=== PATIENT | female | born 1960 | race Caucasian/White ===

== ENCOUNTER 2019-10-26 11:30 | Emergency (ER) | payer OTHER, BC, SELFPAY ==
--- NOTE | ~2019-10-26 | XR_ITS ---
EXAMINATION: XR chest 2V 10/26/2019 11:55 INDICATION: Status post fall. Chest pain. PROCEDURE: 2 view chest COMPARISON: 01/22/2019 FINDINGS: The lungs are clear. The cardiomediastinal silhouette is within normal limits. There are no pleural effusions. There is no pneumothorax suspected. IMPRESSION: 1: NO ACUTE CARDIOPULMONARY DISEASE. Reviewed, dictated and finalized at location A.
[2019-10-26 11:34] VITALS: BP 147/84; PULSE 87; RESP 20; TEMP 36.4; O2SAT 99
--- NOTE | 2019-10-26 11:48 | ED.FALL ---
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 Patient states, while at work a week and a half ago, she slipped and fell. During the episode she had a recurrent left elbow dislocation, for which she was seen and treated and placed on a short course of hydrocodone. She first returned to work today light duty, and complains of right anterior rib pain that began gradually a day after the original injury. No fever, cough, foreign or domestic travel [he has been to [facility]] , wheeze, shortness of breath., N/V/D Related Data Home Medications Medication Instructions Recorded Confirmed armodafinil [Nuvigil] 150 mg PO QAM 10/26/19 10/26/19 ibuprofen 200 mg PO Q6H PRN 10/26/19 10/26/19 Allergies Allergy/AdvReac Type Severity Reaction Status Date / Time No Known Allergies Allergy Verified 10/26/19 11:46 Review of Systems Review of Systems: Narrative: The patient has been informed that they may have pre-hypertension or Hypertension based on a BP reading in the department. I recommend that the patient call the primary care provider listed on their discharge instructions or a physician of their choice this week to arrange follow up for further evaluation of possible pre-hypertension or Hypertension General/Constitutional: No weight loss,fever Eyes: N0: Redness,discharge Ears/Nose/Throat: No: Epistaxis,ear discharge Respiratory: Denies: Hemoptysis Gastrointestinal: No Vomiting, Bleeding-rectal Skin: No Lumps, eruption Neurologic: No Focal Weakness,Sz Hematologic: Denies: Petechiae/Purpura Psychiatric: No: Suicida ideationl All Other Systems: Reviewed and Negative [facility] Past Medical History Medical History (Updated 10/26/19 @ 12:15 by Vinay Sanchez MD) Depression Dislocation of elbow, left, closed (05/23/19) History of benign breast biopsy Social History Social History (Updated 05/27/19 @ 13:43 by Milagros Welch) Smoking status: Never smoker Additional smoking assessment comments: No smoking Alcohol intake: current Comments At time of signature, agree with nursing past medical, surgical, social and family history. There is no relevant family history pertinent to the presenting complaint Exam Narrative: Exam Narrative: General Appearance: Well appearing, Well nourished, No distress EYE: PERRLA, EOMI, Conjunctiva clear Ears: External ear normal, Auditory canal normal Nose: Normal nose, Nares clear Mouth/Throat: Normal appearing, Normal lips Neck: Supple Respiratory: Airway patent, No respiratory distress, tende ant ribs T8-11 Musculoskeletal: Normal strength Skin: Warm, Dry, Normal color Neurological: A&O x3, Speech clear, CN II-XII intact Psychiatric: Normal mood, Normal affect The patient agrees, in light of health emergency- in my medical judgement, only a personal chat was preferable to fully undress & examine the patient exhibiting potential COVID symptoms, in order to limit risk of infection. Course Vital Signs Vital signs: Vital Signs Temperature 97.6 F 10/26/19 11:34 Pulse Rate 87 10/26/19 11:34 Respiratory Rate 10/26/19 11:34 Blood Pressure 147/84 H 10/26/19 11:34 Pulse Oximetry 99 10/26/19 11:34 Temperature 97.6 F 10/26/19 11:34 Pulse Rate 87 10/26/19 11:34 Respiratory Rate 10/26/19 11:34 Blood Pressure 147/84 H 10/26/19 11:34 Pulse Oximetry 99 10/26/19 11:34 Discharge Plan Discharge Clinical Impression: Rib injury Patient Disposition: Home, Self-Care Condition: Stable Instructions: Antibiotic Form Prescriptions: New tramadol 50 mg tablet 50 mg PO BID-TID PRN (Reason: pain) Qty: 15 RF: 0 acetaminophen-codeine [Tylenol-Codeine #3] 300-30 mg tablet 1 tablet PO Q4H PRN (Reason: pain) Qty: 14 RF: 0 No A
== END 2019-10-26 12:32 | disposition home or self-care (01) ==
PROVIDERS: Emergency Provider Emergency Medicine; PCP Family Medicine Adolescent Medicine
DX: S29.9XXA Unspecified injury of thorax, initial encounter (principal); W01.0XXA Fall on same level from slipping, tripping and stumbling without subsequent striking against object, initial encounter
CPT/HCPCS: 71046; 99213; G0463

== ENCOUNTER → 2019-10-27 13:04 | Outpatient (CLI) | payer BC, SELFPAY ==
--- NOTE | ~2019-10-27 | MM_ITS ---
EXAMINATION: MM screening [facility] BI w dulce HISTORY: Screening mammogram TECHNIQUE: Craniocaudal and mediolateral oblique 3-D tomosynthesis images were obtained and synthetic 2-D images were generated. CAD analysis was submitted and interpreted. COMPARISON: Comparison to multiple prior studies sequentially, with oldest reviewed study dated 12/2011. BREAST PARENCHYMAL COMPOSITION: There are scattered areas of fibroglandular density. FINDINGS: There is no evidence of suspicious mass, calcification, or architectural distortion to sugg est malignancy in either breast. There has been no suspicious interval change. IMPRESSION: 1. No mammographic evidence of malignancy. 2. Recommend routine screening mammography in one year. BI-RADS Category 1: Negative Reviewed, dictated and finalized at location A.
== END ==
PROVIDERS: Visit Provider Nurse Practitioner Obstetrics & Gynecology
DX: Z12.31 Encounter for screening mammogram for malignant neoplasm of breast (principal)
CPT/HCPCS: 77063; 77067

== ENCOUNTER 2020-08-29 14:48 | Emergency (ER) | payer BC, SELFPAY ==
--- NOTE | ~2020-08-29 | XR_ITS ---
EXAMINATION: XR chest 2V DATE: 08/29/2020 15:20 INDICATION: Midsternal chest pain radiating to the left arm TECHNIQUE: PA and lateral views of the chest were obtained. COMPARISON: Chest radiograph dated 10/26/19 FINDINGS: The lungs remain clear with no focal airspace opacities, pulmonary edema, pleural effusion or pneumot horax. The cardiomediastinal silhouette is normal. Mild thoracic kyphosis with moderate thoracic and lower cervical spondylosis. IMPRESSION: 1. No acute cardiopulmonary disease. Reviewed, dictated and finalized at location A. 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
--- NOTE | 2020-08-29 14:51 | ECG_ITS ---
Measurements Intervals Sunset Rate: 69 P: 25 MS: 149 QRS: 13 QRSD: 91 T: 39 QT: 404 QTc: 436 Interpretive Statements SINUS RHYTHM BASELINE ARTIFACT- I, II, III, AVR, AVL, AVF, V1 NORMAL ECG Electronically Signed On 08-29-2020 18:58:30 ENGINE REPAIRER by Mikal Hill D.O.
[2020-08-29 14:56] VITALS: BP 137/77; PULSE 75; RESP 15; TEMP 36.4; O2SAT 96
[2020-08-29 15:00] VITALS: PULSE 79
[2020-08-29 15:13] LABS: Basophils Percent Auto 0.5 % (0.2-1.2); Eosinophils Absolute Auto 0.1 K/mm3 (0-0.3); Eosinophils Percent Auto 1.8 % (0-4.4); Hematocrit 44.3 % (37.0-47.0); Hemoglobin 14.7 g/dL (12.0-15.0); Immature Granulocyte Absolute 0.01 K/mm3 (0.00-0.031); Immature Granulocyte Percent A 0.2 % (0-0.5); Lymphocytes Absolute Auto 1.79 K/mm3 (0.9-3.2); Mean Corpuscular HGB Conc 33.2 g/dl (32-36); Mean Corpuscular Hemoglobin 32.8 pg (26-34); Mean Corpuscular Volume 98.9 fl (80-100); Mean Platelet Volume 9.8 fl (7.4-10.4); Monocytes Absolute Auto 0.2 K/mm3 (0.1-0.6); Monocytes Percent Auto 3.9 % (2.6-8.5); Neutrophils Percent Auto 64.6 % (45.5-73.1); Platelet Count Result 340 k/mm3 (150-375); Red Blood Count 4.48 M/mm3 (4.2-5.4); Red Cell Distribution Width 12.1 % (11.5-14.5); White Blood Count 6.2 K/mm3 (4.5-10.0)
[2020-08-29] MEDS: ASPIRIN 81 MG CHEWABLE TABLET 324 MG PO (15:13)
[2020-08-29 15:23] LABS: INR 0.9; Prothrombin Time 12.7 Seconds (11.1-14.7)
[2020-08-29 15:24] LABS: Partial Thromboplastin Time 29.4 SECONDS (22.3-36.8)
[2020-08-29 15:25] LABS: Anion Gap 3 mmol/L (8-16); Blood Urea Nitrogen 16 mg/dL (7-17); Calcium 9.1 mg/dL (8.4-10.2); Carbon Dioxide 34 mmol/L (22-30); Chloride 104 mmol/L (98-107); Estimated CRCL calculation 43 ml/min; Estimated Glomerular Filt Rate 46; Glucose 97 mg/dL (65-105); Potassium 4.1 mmol/L (3.4-5.0); Sodium 141 mmol/L (137-145)
[2020-08-29 15:37] LABS: Troponin I < 0.012 ng/mL (0.000-0.034)
--- NOTE | 2020-08-29 15:39 | ED.CHESTPAIN ---
HPI - Chest Pain General Chief Complaint: Chest Pain <Jose G Asencio MD - Last Filed: 08/29/20 16:44> Stated Complaint: chest pain <Jose G Asencio MD - Last Filed: 08/29/20 16:44> Time Seen by Provider: 08/29/20 15:01 <Jose G Asencio MD - Last Filed: 08/29/20 16:44> History of Present Illness HPI narrative: Patient is a 59-year-old female who presents to the ER with left-sided chest pain. 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 Pain lasts about 5 minutes and caused her to be lightheaded. She reports her labor is intensive. She had similar chest discomfort 2 days earlier that lasted about 5 minutes while she is having sexual intercourse with her . At that time she also stopped what she was doing and her symptoms resolved. At that time she also had lightheadedness. Patient has no known heart disease. She is a non-smoker. She called her PCP today who recommended she come to the ER for further evaluation. Chest pain is aching and nonradiating. <Jose G Asencio MD - Last Filed: 08/29/20 16:44> Related Data Home Medications: Home Medications Medication Instructions Recorded Confirmed armodafinil [Nuvigil] 150 mg PO QAM 10/26/19 10/26/19 <Jose G Asencio MD - Last Filed: 08/29/20 16:44> Allergies/Adverse Reactions: Allergies Allergy/AdvReac Type Severity Reaction Status Date / Time No Known Allergies Allergy Verified 08/29/20 14:59 <Jose G Asencio MD - Last Filed: 08/29/20 16:44> Review of Systems Review of Systems: All systems reviewed & are unremarkable except as noted in HPI and below <Jose G Asencio MD - Last Filed: 08/29/20 16:44> Constitutional: Constitutional: Denies chills, Denies fever(s) and Denies weakness <Jose G Asencio MD - Last Filed: 08/29/20 16:44> ENT: Denies nasal congestion and Denies sore throat <Jose G Asencio MD - Last Filed: 08/29/20 16:44> Cardiovascular: Cardiovascular: Reports chest pain, Denies rapid heart rate and Denies radiating jaw, neck or arm pain <Jose G Asencio MD - Last Filed: 08/29/20 16:44> Respiratory: Respiratory: Denies cough, Denies dyspnea and Denies wheezing <Jose G Asencio MD - Last Filed: 08/29/20 16:44> Neurologic: Reports dizziness and Denies weakness <Jose G Asencio MD - Last Filed: 08/29/20 16:44> PMFSH Past Medical History Medical History: Medical History (Updated 08/29/20 @ 16:44 by Jose G Asencio MD) Depression Dislocation of elbow, left, closed (05/23/19) History of benign breast biopsy <Jose G Asencio MD - Last Filed: 08/29/20 16:44> Surgical History Surgical History: Surgical History (Updated 08/29/20 @ 16:39 by Jose G Asencio MD) No pertinent past surgical history <Jose G Asencio MD - Last Filed: 08/29/20 16:44> Social History Social History: Social History (Updated 05/27/19 @ 13:43 by Milagros Welch) Smoking status: Never smoker Additional smoking assessment comments: No smoking Alcohol intake: current Gender identity (if verbalized by the patient): Female <Jose G Asencio MD - Last Filed: 08/29/20 16:44> Exam Narrative: Exam Narrative: GENERAL: Well-appearing, well-nourished, and in no acute distress. HEAD: Normocephalic, atraumatic. CHEST: Clear to auscultation. No respiratory distress. HEART: Regular rate and rhythm. Normal peripheral pulses. ABDOMEN: Soft, nontender, nondistended. EXTREMITIES: Normal range of motion. No edema. SKIN: Warm, dry, no rash. NEURO: Alert and oriented x3. PSYCH: Normal mood and affect. <Jose G Asencio MD - Last Filed: 08/29/20 16:44> Course Reevaluation(s) Reevaluation #1: Patient chest pain-free at this time. Discussed with Dr. Chadwick with cardiology. Recommends second trop. If negative d/c and they will contact for outpt stress test. <Jose G Asencio MD - Last Filed: 08/29/20 16:44> Date: 08/29/20 <An
[2020-08-29 16:06] VITALS: BP 147/85; PULSE 69; RESP 12; O2SAT 100
[2020-08-29 17:43] VITALS: BP 109/66; PULSE 71; RESP 12; O2SAT 100
[2020-08-29 18:37] LABS: Troponin I < 0.012 ng/mL (0.000-0.034)
[2020-08-29 18:44] VITALS: BP 119/73; PULSE 69; RESP 12; O2SAT 98
[2020-08-29 19:06] VITALS: BP 113/78; PULSE 68; RESP 18; O2SAT 98
== END 2020-08-29 19:07 | disposition home or self-care (01) ==
PROVIDERS: Emergency Medicine; Emergency Provider Emergency Medicine; PCP Family Medicine Adolescent Medicine
DX: R07.9 Chest pain, unspecified (principal)
CPT/HCPCS: 36415; 71046; 80048; 84484; 85025; 85610; 85730; 93005; 99284; A9270

== ENCOUNTER → 2021-12-22 14:23 | Outpatient (CLI) | payer BC, SELFPAY ==
--- NOTE | ~2021-12-22 | MM_ITS ---
EXAMINATION: MM screening [facility] BI w dulce HISTORY: Screening mammogram TECHNIQUE: Craniocaudal and mediolateral oblique 3-D tomosynthesis images were obtained and synthetic 2-D images were generated. CAD analysis was submitted and interpreted. COMPARISON: 10/27/2019, 07/01/2018, 09/17/2016 BREAST PARENCHYMAL COMPOSITION: There are scattered areas of fibroglandular density. FINDINGS: There is no suspicious mass, calcification, or architectural distortion to suggest malignan cy in either breast. There has been no suspicious interval change. IMPRESSION: 1. No mammographic evidence of malignancy. 2. Recommend routine screening mammography in one year. BI-RADS Category 1: Negative Reviewed, dictated and finalized at location A.
--- NOTE | ~2021-12-22 | DEXA_ITS ---
Bone Density Report Name: JULY WEBSTER Age: 61 Sex: Female Ethnicity: White Date of : 1960 Indication: osteopenia; parental hip fracture; height loss; postmenopausal Referring Provider: Mae, Araceli Miranda Study: Bone densitometry was performed. Exam Date: December 22, 2021 Accession number: [id number] Bone Density: Region BMD T-score Z-score Classification AP Spine (L1-L4) 0.781 -2.4 -0.9 Osteopenia Femoral Neck (Left) 0.642 -1.9 -0.5 Osteopenia Total Hip (Left) 0.761 -1.5 -0.5 Osteopenia Femoral Neck (Right) 0.642 -1.9 -0.5 Osteopenia Total Hip (Right) 0.732 -1.7 -0.7 Osteopenia Total Hip Mean 0.747 -1.6 -0.6 Osteopenia World Health Organization criteria for BMD impression classify patients as: Normal (T-score at or above -1.0), Osteopenia (T-score between -1.0 and -2.5), or Osteoporosis (T-score at or below -2.5). 10-year Fracture Risk(1): Major Osteoporotic Fracture 20% Hip Fracture 1.6% Reported Risk Factors: [place] (), Neck BMD=0.642, BMI=30.7, parental fracture, alcohol use (1) FRAX(R) Version 3.08. Fracture probability calculated for an untreated patient. Fracture probability may be lower if the patient has received treatment. Previous Exams: Region Exam Age BMD T-score BMD Change BMD Change Date g/cm2 vs Baseline vs Previous AP Spine(L1-L4) 12/22/2021 61 0.781 -2.4 -0.070* -0.070* 07/20/2011 50 0.851 -1.8 Total Hip(Left) 12/22/2021 61 0.761 -1.5 -0.059* -0.059* 07/20/2011 50 0.820 -1.0 Total Hip(Right) 12/22/2021 61 0.732 -1.7 -0.087* -0.087* 07/20/2011 50 0.820 -1.0 *Denotes significance at 95% confidence level, LSC for AP Spine = 0.022 g/cm2, LSC for Total Hip = 0.027 g/cm2 Clinical Information Provided by Patient: Parent has had a hip fracture Has 3 or more alcoholic drinks per day Has used the following medications: Calcium Patient maximum height was 63 Menopause Age: 47 No regular weight bearing exercise Onset of menses at age 14 Number of children 2 Impression: The patient has low bone mass, based on the Total Spine T-score. The patient has an estimated ten-year risk of hip fracture of 1.6% and an estimated ten-year risk of major fracture of 20%, based on the WHO FRAX algorithm. The patient has risk factors, including: parental hip fracture, excessive alcohol use. The BMD for the AP Spine(L1-L4) decreased, changing by -0.070 since the
== END ==
PROVIDERS: PCP Family Medicine Adolescent Medicine; Visit Provider Nurse Practitioner Obstetrics & Gynecology
DX: Z12.31 Encounter for screening mammogram for malignant neoplasm of breast (principal); Z78.0 Asymptomatic menopausal state; M85.89 Other specified disorders of bone density and structure, multiple sites
CPT/HCPCS: 77063; 77067; 77080

== ENCOUNTER 2022-02-09 14:25 | Outpatient (CLI) | payer BC, SELFPAY ==
--- NOTE | ~2022-02-09 | MR_ITS ---
EXAMINATION: MR brain/brain stem wo con DATE: 02/09/2022 15:03 INDICATION: Sudden agraphia. TECHNIQUE: Magnetic resonance imaging (MRI) of the brain and brainstem was performed without intraven ous contrast. Sequences included sagittal and axial T1-weighted SE, axial diffusion-weighted FS SE, a xial T2*-weighted GRE, axial T2-weighted FLAIR Propeller, and axial T2-weighted Propeller. Apparent d iffusion coefficient (ADC) maps were created. COMPARISON: No prior studies for comparison. . FINDINGS: Normal brain parenchymal volume for age. No evidence for acute infarction or hemorrhage. Fl ow voids in the major intracerebral arteries are normal. Orbits are symmetric without disconjugate ga ze. There are scattered mild periventricular and subcortical white matter changes, most likely relate d to small vessel ischemic disease (microangiopathy). No ventriculomegaly or midline shift. Structure s of the posterior fossa including the seventh/8th cranial nerve complexes are normal. Paranasal sinu ses are unremarkable. Midline sagittal images demonstrate a normal corpus callosum and craniovertebra l junction. IMPRESSION: 1. No acute intracranial abnormality. 2: Mild chronic age-related findings. Reviewed, dictated and finalized at location A.
== END 2022-02-09 14:26 | disposition home or self-care (01) ==
PROVIDERS: PCP Family Medicine Adolescent Medicine; Visit Provider Physician Assistant
DX: R48.8 Other symbolic dysfunctions (principal)
CPT/HCPCS: 70551

== ENCOUNTER 2022-07-13 01:34 | Day surgery (SDC) | payer BC, SELFPAY ==
[2022-07-05 14:15] VITALS: BMI 30.2
--- NOTE | 2022-07-05 14:19 | PC.NURSE ---
Report to the Outpatient Waiting Room, entrance under the green pavilion located off [facility], at time 0830 on date 07/13/22. Planned Procedure Time: 1030. Time changes happen often and if your time is changed the preop area will call you the afternoon before. - You and your visitor will be asked to self-screen and do not enter if you have any COVID symptoms. - Only one visitor is requested with a max of two and NO children visitors are allowed at this time. - The patient visitor may be requested to leave or wait in car when not with patient due to distancing restrictions. - A mask is REQUIRED within the hospital. Patients may have clear liquids (water, carbonated beverages, clear teas, apple juice) until 3 hours prior to surgery with a maximum of 20 ounces. - No food from midnight until time of surgery Take the following medications with a SIP of water the morning of surgery: NONE Medications to discontinue per physician: VITAMINS Date to take last dose: 07/09/[address] ASPIRIN [address] DIAZ Please no make-up, nail honduran, hairspray, perfume, deodorant, or body powder the day of surgery. No jewelry (including any body piercings) or valuables the day of surgery, leave them at home. Please take a shower or bath the night before, or the morning of, surgery with an antibacterial soap. Wear comfortable, loose fitting clothing. - Jewelry must be removed prior to entering the operating room. Rings and piercings that are not removed may be cut off. - The hospital will not accept responsibility for valuables. - Please leave all valuables, including medications, at home the day of surgery. If you are going home after surgery, a licensed car pick up driver must drive you home. - NO public transportation without another adult if you receive anesthesia. - We recommend that an adult stay with you for 24 hours following discharge. - We also recommend that you do not drive, make important decision, drink alcoholic beverages, or take any drugs that were not prescribed by your health care provider for at least 24 hours after your discharge time. Follow any additional instructions given to you from your surgeon. If you or anyone in your household have experienced Covid symptoms in the past week, please notify your surgeon or the nurse liaison at the phone number below for possible testing. Telephone instructions given to PT - JULY WEBSTER and asked if any additional questions and then verbalized understanding. Patient advised to call surgeon office or pre surgery nurse liaison [phone] if any additional questions.
--- NOTE | 2022-07-12 08:56 | WPDANESEPPF ---
Anes - Initial Pre Proc Eval Procedure: Operation Date: 07/13/22 10:30 Proposed Procedures p Partial Plantar Fasciectomy Left Foot - Hamilton Patterson JR, MD Date/Time: 07/12/22 08:56 Surgeon: Hamilton Patterson JR, MD Pre Op Diagnosis: plantar fascitis left foot Patient Data Age: 61 Gender: F Height: 1.55 m Weight: 72.6 kg Allergies Allergy/AdvReac Type Severity Reaction Status Date / Time No Known Allergies Allergy Verified 07/13/22 08:55 Home Medications Medication Instructions Recorded Confirmed Type aspirin 81 mg tablet,delayed 81 mg PO DAILY 01/23/22 07/13/22 History release (Adult Aspirin Regimen) calcium citrate 315 mg 1 tablet PO DAILY 01/23/22 07/13/22 History calcium-vitamin D3 6.25 mcg (250 unit) tablet (Citracal + Vitamin D Maximum) rosuvastatin 20 mg tablet 20 mg PO DAILY 01/23/22 07/13/22 History lisinopril 20 mg tablet 20 mg PO DAILY #90 tabs 02/13/22 07/13/22 Rx armodafinil 150 mg tablet 150 mg PO QAM #30 tabs 03/27/22 07/13/22 Rx pantoprazole 40 mg tablet,delayed See Rx Instructions .Route 03/27/22 07/13/22 Rx release .COMPLEX #180 tabs Patient hx anesthesia problems: none Family hx anesthesia problems: none Results Review: All pre-operative results and documents have been reviewed as part of the pre-operative evaluation. [facility] Past Medical History Medical History (Updated 07/12/22 @ 08:58 by Lev Butts DO) Depression Dislocation of elbow, left, closed (05/23/19) GERD (gastroesophageal reflux disease) History of benign breast biopsy Hyperlipidemia Hypertension Surgical History Surgical History No pertinent past surgical history Family History Family History (Updated 01/23/22 @ 10:38 by Judy Murillo MA) Father Malignant neoplasm of prostate Mother Diabetes mellitus Heart disease Cerebrovascular accident Social History Social History (Updated 01/23/22 @ 10:39 by Judy Murillo MA) Smoking status: Never smoker Second hand tobacco smoke exposure: No Additional smoking assessment comments: No smoking Alcohol intake: current Drinks per week: 10 Alcohol use details: Glass of wine per day Substance use: never Substance use type: does not use Living arrangements: with family Gender identity (if verbalized by the patient): Female Sexual Orientation (if Verbalized by the Patient): Straight or Heterosexual Spiritual care concerns: No Agree to blood products: Yes Anes - Eval Final PreProcedure Day of Procedure 07/12/22 08:56 Patient weight: overweight Heart: regular rate and rhythm Lungs: clear to auscultation Airway: Mallampati scale class II Neurological: alert and oriented Last oral intake: >/= 8 hours ASA classification: III Emergent: no Anesthetic plan: proceed Anesthesia type and monitoring: general GIVS and standard monitoring Results Review: All pre-operative results and documents have been reviewed as part of the pre-operative evaluation. Informed Consent: The patient's anesthetic plan and its attendant risks and benefits were discussed with the patient/family/POA. Questions were solicited and answers provided to the satisfaction of the patient/family/POA.
--- NOTE | 2022-07-13 07:14 | WPDHPUPDATE1 ---
History and Physical Update Update Date/Time: 07/13/22 07:14 History and Physical has been reviewed, including an updated exam of the patient. There are NO changes in the patient's condition. Risks, benefits, and alternatives have been discussed and questions answered. Patient agrees to proceed with procedure.
[2022-07-13] MEDS: LACTATED RINGERS 1,000 ML 30 ML IV CONT (09:20)
[2022-07-13 09:28] VITALS: BP 125/85; PULSE 76; RESP 16; TEMP 36.6; O2SAT 98
[2022-07-13] MEDS: ceFAZolin 2 GM/D5W 50 ML 2 GM/50 ML BAG IVPB (10:22)
--- NOTE | 2022-07-13 11:04 | P.OP_ITS ---
Procedure Note - Detailed Date of Procedure 07/13/22 Pre-op Diagnosis plantar fascitis left foot Post-op Diagnosis Same Procedure Performed Partial plantar fasciectomy left foot Surgeon Hamilton Patterson JR, XIAOM Anesthesia MAC and Local Indications Recalcitrant inferior left heel pain Findings Narrow thick plantar fascia Description of Procedure Under mild sedation, the patient was brought in to the operating room, placed on the operating table in the supine position. A pneumatic ankle tourniquet was placed about the patient's ankle. Following general anesthesia, local anesthesia was obtained about the affected lower extremity utilizing 20 mL of a one to mix of 2% Lidocaine plain and 0.5% Marcaine plain to the tibial nerve. The foot was then scrubbed, prepped, and draped in the usual aseptic manner. An Esmarch bandage was then used to exsanguinate the patient's foot and the pneumatic ankle tourniquet was then inflated. Next, an incision was made starting distal to the medial tubercle of the calca neus extending distally 3cm. All bleeders were cauterized as necessary. Next the dissection was continued down to the plantar fascia it was exposed medially and laterally with [place] retractors. Two thirds of the medial plantar fascia was transected and a 4mm portion was also cut and discarded. The wound site was flushed with sterile saline. The deep subcutaneous tissue was reapproximated with 3.0 Vicryl and the skin was reapproximated with 2.0 Prolene and 3.0 Prolene in Vertical mattress and Simple interrupted suture technique. Upon completion of the procedure, the plantar incision was dressed with adaptic, 4x4 gauze, kerlix and coban. The pneumatic ankle tourniquet was then deflated and a prompt hyperemic response was noted to all digits of the affected foot. A CAM Walker boot was then applied. The patient did very well with the procedure and the anesthesia. The patient was transferred to the recovery room with vital signs stable and vascular status intact to all toes of the affected foot. Following a period of postoperative monitoring, the patient will be discharged home on the following written and oral postoperative instructions: 1. The patient should keep the dressing clean, dry, and intact. Use a cast protector bag with showers. 2. The patient will be strictly protected weight bearing with CAM walker boot. 3. Patient should ice and elevate the affected foot when at rest. 4. The patient is to contact Dr. Patterson for all postop care and if any problems arise. 5. Prescriptions were written for Percocet 5/325 dispensed 40 to be taken 1 p.o. q.4-6 hours as needed for severe pain. Estimated Blood Loss 1 Drains No Packing No Pathology None sent Complications No immediate complications Condition Stable Disposition Same day
[2022-07-13 11:05] VITALS: BP 112/63; PULSE 73; RESP 16; O2SAT 100
[2022-07-13 11:35] VITALS: BP 144/76; PULSE 62; RESP 16
[2022-07-13 11:50] VITALS: BP 136/58; PULSE 67; RESP 15
== END 2022-07-13 12:00 | disposition home or self-care (01) ==
PROVIDERS: PCP Family Medicine Adolescent Medicine; Visit Provider Podiatrist Foot & Ankle Surgery
PROC: (CPT 28119; principal; 2022-07-13 10:30)
DX: M72.2 Plantar fascial fibromatosis (principal); I10 Essential (primary) hypertension; E78.5 Hyperlipidemia, unspecified; K21.9 Gastro-esophageal reflux disease without esophagitis
CPT/HCPCS: 28060; J0690; J2250; J2704; J3010; J7120

== ENCOUNTER 2023-11-15 11:34 | Outpatient (CLI) | payer BC, SELFPAY ==
--- NOTE | ~2023-11-15 | XR_ITS ---
EXAMINATION: XR hand BI arthritis min 3V DATE: 11/15/2023 11:55 INDICATION: Pain in joints of right hand. TECHNIQUE: 4 views of right hand 4 views of left hand were obtained. COMPARISON: Left wrist radiographs 05/23/2019 FINDINGS: RIGHT HAND: Clinodactyly is noted. There is ulnar subluxation of second distal phalanx with respect t o the middle phalanx. No fracture. There is moderate osteoarthritis of first carpometacarpal joint. T here is mild osteoarthritis of first metacarpophalangeal joint and some of the interphalangeal joints . There is severe osteoarthritis of second and third distal interphalangeal joints and moderate osteo arthritis of fourth distal interphalangeal joint LEFT HAND: Clinodactyly is noted. No fracture. There is severe osteoarthritis of first carpometacarpa l joint and mild osteoarthritis of first metacarpophalangeal joint and some of the interphalangeal jeffery ints. There is severe osteoarthritis of the third distal interphalangeal joint. IMPRESSION: 1. Polyarticular osteoarthritis. Reviewed, dictated and finalized at location E.
== END 2023-11-15 11:35 ==
LOC: MICIMG 11:36
PROVIDERS: PCP Family Medicine Adolescent Medicine; Visit Provider Nurse Practitioner Family
DX: M19.041 Primary osteoarthritis, right hand (principal); M19.042 Primary osteoarthritis, left hand
CPT/HCPCS: 73130

== ENCOUNTER 2025-04-07 23:20 | Inpatient (IN) | payer BC, SELFPAY ==
--- NOTE | ~2025-04-07 | CT_ITS ---
EXAMINATION: CT abdomen pelvis wo con DATE: 04/08/2025 00:37 INDICATION: Abdominal pain. Nausea and vomiting. TECHNIQUE: Computed tomography (CT) of the abdomen and pelvis was performed without intravenous contrast. Automated exposure control and iterative reconstruction technique were employed. The dose-length product was 571.44 mGy-cm. COMPARISON: None. FINDINGS: The visualized portions of lung bases demonstrate minimal atelectasis. No pleural effusion. The heart size is normal. No pericardial effusion. There is a small sliding hiatal hernia. There are cysts in the liver measuring up to 11 mm. The gallbladder, spleen, pancreas, adrenal glands, and kidneys are normal. There is no urolithiasis. There are few scattered diverticula in the colon. There is wall thickening throughout the colon with surrounding fat stranding, consistent with colitis. The appendix is normal. There are no pathologically enlarged lymph nodes. There is a small volume of ascites. There is severe thoracic and lumbar spondylosis. IMPRESSION: 1. Pancolitis. 2. Small volume of ascites. Reviewed, dictated and finalized at location E.
--- NOTE | 2025-04-07 23:28 | ECG_ITS ---
Test Date: 2025-04-07 23:44:19 Measurements Intervals Martha Rate: 86 P: 49 FL: 160 QRS: 45 QRSD: 98 T: 59 QT: 373 QTc: 448 Interpretive Statements SINUS RHYTHM No previous ECG available for comparison Electronically Signed On 04-08-2025 06:37:52 CDT by Pascual Ceja M.D.
[2025-04-07 23:32] VITALS: BP 113/53; PULSE 88; RESP 18; O2SAT 100
[2025-04-07] MEDS: ONDANSETRON INJ 4 MG/2 ML VIAL IV PUSH (23:39)
[2025-04-07 23:44] LABS: Hematocrit 41.1 % (37.0-47.0); Hemoglobin 13.7 g/dL (12.0-15.0); Immature Granulocyte Percent A 0.4 % (0-0.5); Lymphocytes Absolute Auto 0.75 K/mm3 (0.9-3.2); Mean Corpuscular HGB Conc 33.3 g/dl (32-36); Mean Corpuscular Hemoglobin 32.2 pg (26-34); Mean Corpuscular Volume 96.5 fl (80-100); Nucleated Red Blood Cells Absolute Auto 0.000 K/mm3 (0.0-0.012); Nucleated Red Blood Cells Perc 0.0 % (0.0-0.2); Platelet Count Result 367 k/mm3 (150-375); Red Blood Count 4.26 M/mm3 (4.2-5.4); White Blood Count 16.7 K/mm3 (4.5-10.0)
--- NOTE | 2025-04-07 23:49 | ED_ITS ---
HPI - Abdominal Pain General Chief Complaint: Nausea/Vomiting/Diarrhea Stated Complaint: ABD PAIN, N/V, LOW BG Time Seen by Provider: 04/07/25 23:24 History of Present Illness HPI narrative: 64-year-old female with a past medical history including hypertension, hyperlipidemia, GERD. She presents to the emergency department with nausea vomiting and diarrhea. She states that she was having some lack of appetite for last day or so and then today felt lower abdominal pain constipation. She took some laxatives around 6:30 p.m. and had several bowel movements and now having diarrhea. She states she has been nauseous with vomiting and lower abdominal discomfort. Worsening today. EMS arrived and she was hypoglycemic in the 40s. No history of diabetes and no use of any self on urea as or injectable medications for weight loss or diabetes. Patient given D10 EN route and had no improvement on arrival currently still hypoglycemic in the 40s. Additional D10 was administered with improvement. Patient is otherwise not any acute physical or respiratory distress. Complaining of some lower abdominal discomfort and lack of appetite but otherwise denies any abdominal surgical history. No similar presentations previously. No subjective fever chills. No chest pain shortness a breath. No traumatic injuries recent hospitalizations or new medications. Related Data Home Medications ?Medication ?Instructions ?Recorded ?Confirmed ?Last Taken ?Type aspirin 81 mg tablet,delayed 81 mg PO DAILY 01/23/22 0 04/08/25 04/07/25 History release (Adult Aspirin Regimen) calcium 315 mg (as 1 tablet PO DAILY 01/23/22 0 04/08/25 04/07/25 History citrate)-vitamin D3 6.25 mcg (250 unit) tablet (Citracal + Vitamin D Maximum) rosuvastatin 20 mg tablet 20 mg PO DAILY 01/23/22 09/12/0604/07/25 History ibuprofen 200 mg tablet 800 mg PO Q6H PRN fever or p ain 04/08/25 04/08/25 04/07/25 History Allergies Allergy/AdvReac Type Severity Reaction Status Date / Time No Known Allergies Allergy Verified 01/19/25 10:45 Review of Systems 2 Review of Systems: As reviewed above in HPI [facility] Past Medical History Medical History (Updated 04/08/25 @ 06:37 by Venkat Sharma MD) Circadian rhythm sleep disorder, 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 Osteopenia Hyperlipidemia Hypertension GERD (gastroesophageal reflux disease) Dislocation of elbow, left, closed (05/23/19) Depression History of benign breast biopsy Surgical History Surgical History No pertinent past surgical history Family History Family History Father Malignant neoplasm of prostate Mother Diabetes mellitus Heart disease Cerebrovascular accident Other Factor V Leiden Social History Social History Smoking status: Never smoker Second hand tobacco smoke exposure: No Additional smoking assessment comments: No smoking Alcohol intake: current Drinks per week: 7 Alcohol use details: Glass of wine per day Substance use: never Substance use type: does not use Do You Feel Safe in your Home?: Yes Lack of Transportation: No Lack of Food: Never True Current Housing: I Have Housing Concerned About Future Housing: No Difficulty Paying Gas/Electric Bills: No Difficulty Paying for Meds: No Currently Unemployed: No Education: High School Diploma/GED Difficulty w/ Childcare or Family Care: No Living arrangements: with family Occupation/Education: occupation Gender identity (if verbalized by the patient): Female Sexual Orientation (if Verbalized by the Patient): Straight or Heterosexual Spiritual care concerns: No Agree to blood products: Yes Exam 2 Narrative: GENERAL: [Well-appearing, well-nourished, and in no acute distress.] HEAD: [Normocephalic, atraumatic.] EYES: [PERRLA and EOMI.] ENT: Nares clear, no rhinorrhea or epistaxis. Mucous membranes moist. NECK: Supple. CHEST: [Clear to auscultation. No respiratory distress.] HEART: [Regular rate and rhythm]. No murmur heard. [Normal peripheral pulses.] ABDOMEN: [Soft, nondistended], mildly tender lower abdomen, no signs of peritonitis, [No rigidity or guarding] EXTREMITIES: Normal range of motion. [No edema.] SKIN: Warm, dry, no rash. NEURO: [No focal deficits]. Alert and oriented [x3.] PSYCH: [Normal mood and affect.] Course Vital Signs Vital signs: Vital Signs Pulse Rate 88 04/07/25 23:32 Respiratory Rate 18 04/07/25 23:32 Blood Pressure 113/53 L 04/07/25 23:32 Pulse Oximetry 100 04/07/25 23:32 Oxygen Delivery Room Air 04/07/25 23:32 Temperature 36.6 C 04/08/25 05:01 Pulse Rate 88 04/08/25 06:00 Respiratory Rate 18 04/08/25 05:01 Blood Pressure 112/53 L 04/08/25 05:01 Pulse Oximetry 100 04/08/25 05:01 Oxygen Delivery Room Air 04/08/25 05:00 MDM - Abdominal Pain MDM Narrative Medical decision making narrative: 64-year-old female with a past medical history including hypertension, hyperlipidemia, GERD. She presents to the emergency department with nausea vomiting and diarrhea. She states that she was having some lack of appetite for last day or so and then today felt lower abdominal pain constipation. She took some laxatives around 6:30 p.m. and had several bowel movements and now having diarrhea. She states she has been nauseous with vomiting and lower abdominal discomfort. Worsening today. EMS arrived and she was hypoglycemic in the 40s. No history of diabetes and no use of any self on urea as or injectable medications for weight loss or diabetes. Patient given D10 EN route and had no improvement on arrival currently still hypoglycemic in the 40s. Additional D10 was administered with improvement. Patient is otherwise not any acute physical or respiratory distress. Complaining of some lower abdominal discomfort and lack of appetite but otherwise denies any abdominal surgical history. No similar presentations previously. No subjective fever chills. No chest pain shortness a breath. No traumatic injuries recent hospitalizations or new medications. Patient is hemodynamically stable without any tachycardia, tachypnea, hypoxemia blood pressure concerns. Given her nausea vomiting and diarrhea after some laxative use likely some GI losses causing her hypoglycemia. She has no history of diabetes or any other abdominal history. Additional D10 was provided with improvement to 215 on blood sugar recheck. Q.1 hour glucose checks ordered. She was given additional fluids and Zofran while workup underway with CBC, CMP, lipase, urinalysis and a CT scan of the abdomen pelvis. Differential includes gastroenteritis, gastritis, colitis, diverticulitis, laxative induced GI losses, appendicitis, less likely gallbladder disease or pancreatitis. Patient had recurrent episodes of hypoglycemia requiring additional dextrose infused and fluids. Q.1 hour glucose checks continue details stability. Currently at 150 cc of D 5 per hour with LR. CT scan shows pancolitis but C diff testing was negative. Patient started on ciprofloxacin and Flagyl. She has an acute kidney injury likely from GI losses and dehydration. Received fluid resuscitation here. Feels better during re-evaluations. Hemodynamically stable and afebrile. Requires acute 2 hour glucose checks this time given the dextrose containing fluid infusion. Discussed the case with the hospitalist Dr. Rodriguez and patient was admitted to the IMU at this time. Patient and family updated on plan of care and comfortable with admission. As needed medications and fluids ordered. Medical Records Attestation: I reviewed the patient's medical records. Lab Data Attestation: I reviewed the patient's lab results. 04/07/25 23:38 04/07/25 23:38 Labs: Lab Results 04/07/25 04/07/25 04/07/25 Range/Units 23:38 23:41 23:53 WBC 16.7 H (4.5-10.0) K/mm3 RBC 4.26 (4.2-5.4) M/mm3 Hgb 13.7 (12.0-15.0) g/dL Hct 41.1 (37.0-47.0) % MCV 96.5 (80-100) fl MCH 32.2 (26-34) pg MCHC 33.3 (32-36) g/dl RDW 12.2 (11.5-14.5) % Plt Count 367 (150-375) k/mm3 MPV 9.7 (7.4-10.4) fl Immature Gran % (Auto) 0.4 (0-0.5) % Neut % (Auto) 94.3 H (45.5-73.1) % Lymph % (Auto) 4.5 L (18.3-44.2) % [place] % (Auto) 0.5 L (2.6-8.5) % Eos % (Auto) 0.1 (0-4.4) % Baso % (Auto) 0.2 (0.2-1.2) % Lymph # (Auto) 0.75 L (0.9-3.2) K/mm3 [place] # (Auto) 0.1 (0.1-0.6) K/mm3 Eos # (Auto) 0.0 (0-0.3) K/mm3 Baso # (Auto) 0.0 (0.0-0.1) K/mm3 Abs Immat Gran (auto) 0.06 H (0.00-0.031) K/mm3 Absolute Neuts (auto) 15.8 H (1.3-6.7) K/mm3 Absolute Nucleated RBC 0.000 (0.0-0.012) K/mm3 Nucleated RBC % 0.0 (0.0-0.2) % Sodium 126 L (137-145) mmol/L Potassium 4.1 (3.4-5.0) mmol/L Chloride 95 L (98-107) mmol/L Carbon Dioxide 16 L (22-30) mmol/L Anion Gap 15 H (4-12) mmol/L BUN 19 H (7-17) mg/dL Creatinine 2.02 H (0.7-1.0) mg/dL Estim Creat Clear Calc 21 ml/min Estimated GFR 25 L (59 - ) Glucose 284 H (65-110) mg/dL POC Capillary Glucose 214 H (65-105) mg/dl Calcium 9.0 (8.4-10.2) mg/dL Magnesium 2.6 H (1.6-2.3) mg/dL Total Bilirubin 0.4 (0.2-1.3) mg/dL AST 37 H (14-36) U/L ALT 18 (6-35) U/L Alkaline Phosphatase 106 (38-126) U/L Total Protein 6.1 L (6.3-8.2) g/dL Albumin 3.6 (3.5-5.1) g/dL Lipase 83 (23-300) U/L Urine Color Dark yellow (Yellow) Urine Appearance Cloudy H (Clear) Urine pH 5.5 (5.0-9.0) Ur Specific [place] 1.020 (1.001-1.035) Urine Protein 1+ H (Negative) mg/dL Urine Glucose (UA) 3+ H (Negative) mg/dL Urine Ketones 1+ H (Negative) mg/dL Ur Blood (Man) Negative (Negative) Urine Nitrate Negative (Negative) Urine Bilirubin 1+ H (Negative) Urine Urobilinogen 1.0 (<2.0) mg/dL Add Ur Microanalysis Reviewed Leukocyte Esterase Rfl 1+ H (Negative) BAILEY/UL Urine RBC 0-2 (0-2) /hpf Urine WBC 6-10 H (0-3) /hpf Ur Squamous Epith Cells Moderate (Few) /hpf Urine Bacteria Trace /hpf Urine Casts >20 C. difficile (PCR) (NEGATIVE) 04/08/25 04/08/25 04/08/25 Range/Units 00:14 01:14 01:40 WBC (4.5-10.0) K/mm3 RBC (4.2-5.4) M/mm3 Hgb (12.0-15.0) g/dL Hct (37.0-47.0) % MCV (80-100) fl MCH (26-34) pg MCHC (32-36) g/dl RDW (11.5-14.5) % Plt Count (150-375) k/mm3 MPV (7.4-10.4) fl Immature Gran % (Auto) (0-0.5) % Neut % (Auto) (45.5-73.1) % Lymph % (Auto) (18.3-44.2) % [place] % (Auto) (2.6-8.5) % Eos % (Auto) (0-4.4) % Baso % (Auto) (0.2-1.2) % Lymph # (Auto) (0.9-3.2) K/mm3 [place] # (Auto) (0.1-0.6) K/mm3 Eos # (Auto) (0-0.3) K/mm3 Baso # (Auto) (0.0-0.1) K/mm3 Abs Immat Gran (auto) (0.00-0.031) K/mm3 Absolute Neuts (auto) (1.3-6.7) K/mm3 Absolute Nucleated RBC (0.0-0.012) K/mm3 Nucleated RBC % (0.0-0.2) % Sodium (137-145) mmol/L Potassium (3.4-5.0) mmol/L Chloride (98-107) mmol/L Carbon Dioxide (22-30) mmol/L Anion Gap (4-12) mmol/L BUN (7-17) mg/dL Creatinine (0.7-1.0) mg/dL Estim Creat Clear Calc ml/min Estimated GFR (59 - ) Glucose (65-110) mg/dL POC Capillary Glucose 172 H 30 L* 99 (65-105) mg/dl Calcium (8.4-10.2) mg/dL Magnesium (1.6-2.3) mg/dL Total Bilirubin (0.2-1.3) mg/dL AST (14-36) U/L ALT (6-35) U/L Alkaline Phosphatase (38-126) U/L Total Protein (6.3-8.2) g/dL Albumin (3.5-5.1) g/dL Lipase (23-300) U/L Urine Color (Yellow) Urine Appearance (Clear) Urine pH (5.0-9.0) Ur Specific [place] (1.001-1.035) Urine Protein (Negative) mg/dL Urine Glucose (UA) (Negative) mg/dL Urine Ketones (Negative) mg/dL Ur Blood (Man) (Negative) Urine Nitrate (Negative) Urine Bilirubin (Negative) Urine Urobilinogen (<2.0) mg/dL Add Ur Microanalysis Leukocyte Esterase Rfl (Negative) BAILEY/UL Urine RBC (0-2) /hpf Urine WBC (0-3) /hpf Ur Squamous Epith Cells (Few) /hpf Urine Bacteria /hpf Urine Casts C. difficile (PCR) (NEGATIVE) 04/08/25 04/08/25 04/08/25 Range/Units 02:13 02:57 03:14 WBC (4.5-10.0) K/mm3 RBC (4.2-5.4) M/mm3 Hgb (12.0-15.0) g/dL Hct (37.0-47.0) % MCV (80-100) fl MCH (26-34) pg MCHC (32-36) g/dl RDW (11.5-14.5) % Plt Count (150-375) k/mm3 MPV (7.4-10.4) fl Immature Gran % (Auto) (0-0.5) % Neut % (Auto) (45.5-73.1) % Lymph % (Auto) (18.3-44.2) % [place] % (Auto) (2.6-8.5) % Eos % (Auto) (0-4.4) % Baso % (Auto) (0.2-1.2) % Lymph # (Auto) (0.9-3.2) K/mm3 [place] # (Auto) (0.1-0.6) K/mm3 Eos # (Auto) (0-0.3) K/mm3 Baso # (Auto) (0.0-0.1) K/mm3 Abs Immat Gran (auto) (0.00-0.031) K/mm3 Absolute Neuts (auto) (1.3-6.7) K/mm3 Absolute Nucleated RBC (0.0-0.012) K/mm3 Nucleated RBC % (0.0-0.2) % Sodium (137-145) mmol/L Potassium (3.4-5.0) mmol/L Chloride (98-107) mmol/L Carbon Dioxide (22-30) mmol/L Anion Gap (4-12) mmol/L BUN (7-17) mg/dL Creatinine (0.7-1.0) mg/dL Estim Creat Clear Calc ml/min Estimated GFR (59 - ) Glucose (65-110) mg/dL POC Capillary Glucose 140 H 93 (65-105) mg/dl Calcium (8.4-10.2) mg/dL Magnesium (1.6-2.3) mg/dL Total Bilirubin (0.2-1.3) mg/dL AST (14-36) U/L ALT (6-35) U/L Alkaline Phosphatase (38-126) U/L Total Protein (6.3-8.2) g/dL Albumin (3.5-5.1) g/dL Lipase (23-300) U/L Urine Color (Yellow) Urine Appearance (Clear) Urine pH (5.0-9.0) Ur Specific [place] (1.001-1.035) Urine Protein (Negative) mg/dL Urine Glucose (UA) (Negative) mg/dL Urine Ketones (Negative) mg/dL Ur Blood (Man) (Negative) Urine Nitrate (Negative) Urine Bilirubin (Negative) Urine Urobilinogen (<2.0) mg/dL Add Ur Microanalysis Leukocyte Esterase Rfl (Negative) BAILEY/UL Urine RBC (0-2) /hpf Urine WBC (0-3) /hpf Ur Squamous Epith Cells (Few) /hpf Urine Bacteria /hpf Urine Casts C. difficile (PCR) Negative (NEGATIVE) Imaging Data Attestation: I personally reviewed and interpreted this imaging study as follows: My impression: Diffuse burnett colitis, ovarian cyst, possible hepatic cyst Critical Care Time Critical Care Time Critical Care Time: Yes Total Critical Care Time: 75 Discharge Plan Discharge Clinical Impression: Recurrent severe hypoglycemia, Pancolitis, Acute renal failure, Acute dehydration Patient Disposition: Still a Patient Condition: Stable Time of Disposition: 06:37
--- NOTE | 2025-04-07 23:50 | PC.NURSE ---
ERP notified that the pt's repeat BS was 213. D5LR was discontinued per ERP.
[2025-04-07] MEDS: LACTATED RINGERS 1,000 ML 999 ML IV CONT (23:56)
[2025-04-07 23:58] LABS: Alanine Aminotransferase 18 U/L (6-35); Albumin Level 3.6 g/dL (3.5-5.1); Alkaline Phosphatase 106 U/L (38-126); Anion Gap 15 mmol/L (4-12); Aspartate Amino Transferase 37 U/L (14-36); Bilirubin,Total 0.4 mg/dL (0.2-1.3); Blood Urea Nitrogen 19 mg/dL (7-17); Calcium 9.0 mg/dL (8.4-10.2); Carbon Dioxide 16 mmol/L (22-30); Chloride 95 mmol/L (98-107); Estimated CRCL calculation 21 ml/min; Estimated Glomerular Filt Rate 25; Glucose 284 mg/dL (65-110); Lipase 83 U/L (23-300); Magnesium 2.6 mg/dL (1.6-2.3); Potassium 4.1 mmol/L (3.4-5.0); Sodium 126 mmol/L (137-145); Total Protein 6.1 g/dL (6.3-8.2)
[2025-04-08] VITALS (23 sets, daily range): BP systolic 97–143; BP diastolic 48–85; PULSE 68–95; RESP 18; TEMP 36.3–37.1; O2SAT 95–100; BMI 29.1
[2025-04-08 00:17] LABS: Add Urine Microscopic? YES; Appearance Urine Cloudy (Clear); Glucose Urine UA 3+ mg/dL (Negative); Leukocyte Esterase Ur 1+ LEU/UL (Negative); Need Manual Microscopic Reviewed; Nitrate Urine Negative (Negative); Non Pathogenic Casts >20; Specific Grav Ur 1.020 (1.001-1.035)
--- NOTE | 2025-04-08 00:21 | PC.NURSE ---
ERP updated that the patient's BS in 173.
[2025-04-08] MEDS: SODIUM CHLORIDE 0.9% IV 1,000 ML 999 ML IV CONT (00:50)
--- NOTE | 2025-04-08 01:19 | PC.NURSE ---
BS rechecked and it was 30. ERP made aware. D5 bolus started.
[2025-04-08] MEDS: DEXTROSE 5%/LACTATED RINGERS 1,000 ML 1000 ML IV CONT (01:20)
--- NOTE | 2025-04-08 01:42 | PC.NURSE ---
BS increased to 99. ERP made aware. D5LR still running at 999mL/hr.
[2025-04-08] MEDS: DEXTROSE 5%/LACTATED RINGERS 1,000 ML 100 ML IV CONT ×2 (02:33→18:09)
--- NOTE | 2025-04-08 02:58 | PC.NURSE ---
Repeat BS is 93. ERP made aware.
[2025-04-08] MEDS: CIPROFLOXACIN 400 MG/D5W 200ML 200 ML 200 MG IVPB (04:07)
[2025-04-08] MEDS: metroNIDAZOLE 500 MG/ISO 100ML 500 MG/100 ML BAG 100 MG IVPB ×3 (04:07→22:46)
[2025-04-08 04:15] LABS: Toxigenic C. Diff NEGATIVE (NEGATIVE)
--- NOTE | 2025-04-08 04:45 | ADMGEN ---
This patient, Romina Brand, was admitted to IMU Room 209-01. Patient/family oriented to hospital policies and general routines including ID bracelet, bed and alarms, visiting hours, pain management, procedures, bathroom and other care routines, personal items, smoking policy, room service/diet, and visiting hours. Information on how to activate the Rapid Response Team has been discussed. Patient/Family are encouraged to report perceived risks to care and to ask questions if they do not understand what they are told or what they should do.
--- NOTE | 2025-04-08 05:28 | P.HP_ITS ---
H&P: HPI History of Present Illness Date/Time: 04/08/25 05:28 Chief Complaint: Nausea vomiting and diarrhea Narrative: 64-year-old female with a past medical history of essential hypertension, hyperlipidemia, osteoarthritis and GERD who presented to the ER from home via EMS due to nausea vomiting and diarrhea. The patient reported that she was feeling bloated and constipated and not having much of an appetite for few days and took laxatives around 18:30. She then began having multiple loose stools. She became overtly weak in called EMS. Accu-Chek in the field was 40. She denies known history of diabetes and is not on any diabetic medications. She reports that she has a outpatient colonoscopy ordered for next month. Her last colonoscopy was at least 10 years ago. She denies any history of ulcerative colitis or inflammatory bowel disease. She has not had any mucousy stools or bloody stools. She denies family history of inflammatory bowel disease. She reports that she began having decreased appetite 3 days ago nose associated by sensation of generalized bloating and cramping. She had not had a bowel movement in 2 or 3 days so she took 3 tablets of ?pink laxative tablets? shortly thereafter she began having severe diarrhea. She has had 2 incontinent stools since she arrived to the hospital. She denies having any fevers or chills, recent travel, or recent ill contacts. She has not had any recent antibiotic exposure. 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 C diff testing was negative. She reports that her stools have been watery but she has not looked at them but she does not think she has had any bloody stools or black stools. She reported that she was feeling nauseous for couple of days but did not start having vomiting until after taking the laxatives. She reports that she is no longer having any abdominal pain. She feels like she needs to urinate. She states that she feels significantly better than she did in the ER. She received 1 L fluid bolus by EMS 1 L of normal saline 1 L of LR 1 L of D5 LR in the ER. Review of Systems 2 Review of Systems: 12 systems were reviewed with pertinent positives and negatives per HPI. Except as documented in the HPI, all other systems were reviewed and are negative. [facility] Past Medical History Medical History (Updated 04/08/25 @ 06:37 by Venkat Sharma MD) Circadian rhythm sleep disorder, shift work type [employer] Osteopenia Hyperlipidemia Hypertension GERD (gastroesophageal reflux disease) Dislocation of elbow, left, closed (05/23/19) Depression History of benign breast biopsy Surgical History Surgical History No pertinent past surgical history Family History Family History Father Malignant neoplasm of prostate Mother Diabetes mellitus Heart disease Cerebrovascular accident Other Factor V Leiden Social History Social History (Updated 04/08/25 @ 08:04 by Ruth Rodriguez DO) Social History: Yvette reports that she has been for 8 years. She has 2 children. She is a lifelong nonsmoker. She drinks 1 alcoholic beverage a day except for on Saturday when she goes bowling she will drink 3 or 4 alcoholic beverages at that time. 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 Code status: Full code Surrogate decision maker: Willie () Smoking status: Never smoker Second hand tobacco smoke exposure: No Additional smoking assessment comments: No smoking Alcohol intake: current Drinks per week: 7 Alcohol use details: Glass of wine per day Substance use: never Substance use type: does not use Do You Feel Safe in your Home?: Yes Lack of Transportation: No Lack of Food: Never True Current Housing: I Have Housing Concerned About Future Housing: No Difficulty Paying Gas/Electric Bills: No Difficulty Paying for Meds: No Currently Unemployed: No Education: High School Diploma/GED Difficulty w/ Childcare or Family Care: No Living arrangements: with family Occupation/Education: occupation Gender identity (if verbalized by the patient): Female Sexual Orientation (if Verbalized by the Patient): Straight or Heterosexual Spiritual care concerns: No Agree to blood products: Yes Meds Home Medications and Allergies Home Medications ?Medication ?Instructions ?Recorded ?Confirmed ?Type aspirin 81 mg tablet,delayed 81 mg PO DAILY 01/23/22 0 04/08/25 History release (Adult Aspirin Regimen) calcium 315 mg (as 1 tablet PO DAILY 01/23/22 0 04/08/25 History citrate)-vitamin D3 6.25 mcg (250 unit) tablet (Citracal + Vitamin D Maximum) rosuvastatin 20 mg tablet 20 mg PO DAILY 01/23/2203/16 History meloxicam 15 mg tablet 15 mg PO DAILY #30 tabs 06/0 08/0704/08/25 Rx pantoprazole 40 mg tablet,delayed See Rx Instructions .Route 07/13/24 04/08/25 Rx release .COMPLEX #180 tabs lisinopril 20 mg tablet See Rx Instructions .Route 0 08/17/24 04/08/25 Rx .COMPLEX #90 tabs armodafinil 150 mg tablet 150 mg PO QAM #30 tabs 11/2404/08/25 Rx ondansetron HCl 4 mg tablet 4 mg PO Q8H PRN nausea and 04/01/25 04/08/25 Rx vomiting #20 tabs ibuprofen 200 mg tablet 800 mg PO Q6H PRN fever or p ain 04/08/25 04/08/25 History Allergies Allergy/AdvReac Type Severity Reaction Status Date / Time No Known Allergies Allergy Verified 01/19/25 10:45 Vital Signs Vital Signs - 24 hr 04/07/25 23:32 04/08/25 01:21 04/08/25 02:35 Temperature 97.3 F L Pulse Rate 88 83 87 Respiratory Rate 18 18 18 Blood Pressure 113/53 L 97/51 L 105/60 Pulse Oximetry 100 97 97 Oxygen Delivery Room Air 04/08/25 04:17 04/08/25 04:37 04/08/25 05:01 Temperature 97.9 F 97.8 F Pulse Rate 90 68 88 Respiratory Rate 18 18 18 Blood Pressure 143/68 H 118/85 112/53 L Pulse Oximetry 99 99 100 Oxygen Delivery Exam 2 Narrative: Weight 70 kg BMI 29.2 Const: Other: No acute distress, well-developed but overweight, appears stated age HENMT: Other: Mucous membranes are tacky, no oral pharyngeal erythema, fair dentition Eyes: Other: Pupils are equal and reactive, no scleral icterus, no conjunctival pallor Neck: Other: No JVD, no lymphadenopathy Resp: Other: Clear to auscultation bilaterally, no increased work of breathing Cardio: Other: Regular rate, regular rhythm, 2+ bilateral radial pedal pulses GI: Other: Distended, soft, nontender, positive bowel sounds Skin: Other: No jaundice, no pallor, fingers are cool to touch but non mottled Neuro: Other: Alert oriented x4, speech is clear, no facial asymmetry Extrem: Other: No clubbing, cyanosis or edema, moves all extremities equally Psych: Other: Appropriate mood and affect, pleasant and cooperative H&P: Results Labs Labs: Laboratory Tests 04/07/25 23:38 04/07/25 23:38 04/07/25 04/07/25 04/07/25 23:38 23:41 23:53 WBC 16.7 H RBC 4.26 Hgb 13.7 Hct 41.1 MCV 96.5 MCH 32.2 MCHC 33.3 RDW 12.2 Plt Count 367 MPV 9.7 Immature Gran % (Auto) 0.4 Neut % (Auto) 94.3 H Lymph % (Auto) 4.5 L [place] % (Auto) 0.5 L Eos % (Auto) 0.1 Baso % (Auto) 0.2 Lymph # (Auto) 0.75 L [place] # (Auto) 0.1 Eos # (Auto) 0.0 Baso # (Auto) 0.0 Abs Immat Gran (auto) 0.06 H Absolute Neuts (auto) 15.8 H Absolute Nucleated RBC 0.000 Nucleated RBC % 0.0 Sodium 126 L Potassium 4.1 Chloride 95 L Carbon Dioxide 16 L Anion Gap 15 H BUN 19 H Creatinine 2.02 H Estim Creat Clear Calc 21 Estimated GFR 25 L Glucose 284 H POC Capillary Glucose 214 H Calcium 9.0 Magnesium 2.6 H Total Bilirubin 0.4 AST 37 H ALT 18 Alkaline Phosphatase 106 Total Protein 6.1 L Albumin 3.6 Lipase 83 Urine Color Dark yellow Urine Appearance Cloudy H Urine pH 5.5 Ur Specific [place] 1.020 Urine Protein 1+ H Urine Glucose (UA) 3+ H Urine Ketones 1+ H Ur Blood (Man) Negative Urine Nitrate Negative Urine Bilirubin 1+ H Urine Urobilinogen 1.0 Add Ur Microanalysis Reviewed Leukocyte Esterase Rfl 1+ H Urine RBC 0-2 Urine WBC 6-10 H Ur Squamous Epith Cells Moderate Urine Bacteria Trace Urine Casts >20 C. difficile (PCR) 04/08/25 04/08/25 04/08/25 00:14 01:14 01:40 WBC RBC Hgb Hct MCV MCH MCHC RDW Plt Count MPV Immature Gran % (Auto) Neut % (Auto) Lymph % (Auto) [place] % (Auto) Eos % (Auto) Baso % (Auto) Lymph # (Auto) [place] # (Auto) Eos # (Auto) Baso # (Auto) Abs Immat Gran (auto) Absolute Neuts (auto) Absolute Nucleated RBC Nucleated RBC % Sodium Potassium Chloride Carbon Dioxide Anion Gap BUN Creatinine Estim Creat Clear Calc Estimated GFR Glucose POC Capillary Glucose 172 H 30 L* 99 Calcium Magnesium Total Bilirubin AST ALT Alkaline Phosphatase Total Protein Albumin Lipase Urine Color Urine Appearance Urine pH Ur Specific [place] Urine Protein Urine Glucose (UA) Urine Ketones Ur Blood (Man) Urine Nitrate Urine Bilirubin Urine Urobilinogen Add Ur Microanalysis Leukocyte Esterase Rfl Urine RBC Urine WBC Ur Squamous Epith Cells Urine Bacteria Urine Casts C. difficile (PCR) 04/08/25 04/08/25 04/08/25 02:13 02:57 03:14 WBC RBC Hgb Hct MCV MCH MCHC RDW Plt Count MPV Immature Gran % (Auto) Neut % (Auto) Lymph % (Auto) [place] % (Auto) Eos % (Auto) Baso % (Auto) Lymph # (Auto) [place] # (Auto) Eos # (Auto) Baso # (Auto) Abs Immat Gran (auto) Absolute Neuts (auto) Absolute Nucleated RBC Nucleated RBC % Sodium Potassium Chloride Carbon Dioxide Anion Gap BUN Creatinine Estim Creat Clear Calc Estimated GFR Glucose POC Capillary Glucose 140 H 93 Calcium Magnesium Total Bilirubin AST ALT Alkaline Phosphatase Total Protein Albumin Lipase Urine Color Urine Appearance Urine pH Ur Specific [place] Urine Protein Urine Glucose (UA) Urine Ketones Ur Blood (Man) Urine Nitrate Urine Bilirubin Urine Urobilinogen Add Ur Microanalysis Leukocyte Esterase Rfl Urine RBC Urine WBC Ur Squamous Epith Cells Urine Bacteria Urine Casts C. difficile (PCR) Negative 04/08/25 04:20 WBC RBC Hgb Hct MCV MCH MCHC RDW Plt Count MPV Immature Gran % (Auto) Neut % (Auto) Lymph % (Auto) [place] % (Auto) Eos % (Auto) Baso % (Auto) Lymph # (Auto) [place] # (Auto) Eos # (Auto) Baso # (Auto) Abs Immat Gran (auto) Absolute Neuts (auto) Absolute Nucleated RBC Nucleated RBC % Sodium Potassium Chloride Carbon Dioxide Anion Gap BUN Creatinine Estim Creat Clear Calc Estimated GFR Glucose POC Capillary Glucose 81 Calcium Magnesium Total Bilirubin AST ALT Alkaline Phosphatase Total Protein Albumin Lipase Urine Color Urine Appearance Urine pH Ur Specific [place] Urine Protein Urine Glucose (UA) Urine Ketones Ur Blood (Man) Urine Nitrate Urine Bilirubin Urine Urobilinogen Add Ur Microanalysis Leukocyte Esterase Rfl Urine RBC Urine WBC Ur Squamous Epith Cells Urine Bacteria Urine Casts C. difficile (PCR) EKG personally reviewed and interpreted demonstrated normal sinus rhythm with baseline artifact QTC [address] of the abdomen pelvis without contrast per stat read interpretation demonstrated diffuse mucosal thickening colon suggestive of pancolitis possibly infectious versus inflammatory with incidental findings of hepatic cyst and right ovarian cyst. Official radiologic interpretation pending. Assessment and Plan Assessment and plan (1) Hypoglycemia: Code(s): E16.2 - Hypoglycemia, unspecified Status: Acute (2) Pancolitis: Code(s): K52.9 - Noninfective gastroenteritis and colitis, unspecified Status: Acute (3) Acute kidney injury: Code(s): N17.9 - Acute kidney failure, unspecified Status: Acute (4) Acute hyponatremia: Code(s): E87.1 - Hypo-osmolality and hyponatremia Status: Acute (5) Hyperosmolar hyponatremia: Code(s): E87.0 - Hyperosmolality and hypernatremia; E87.1 - Hypo-osmolality and hyponatremia Status: Acute Plan Patient has hyperosmolar hyponatremia due to volume depletion/dehydration in the setting of what is likely laxative induced diarrhea. However imaging does demonstrate possible burnett colitis although I suspect under distension may have similar appearance. Patient was started on empiric antibiotic therapy with Cipro and Flagyl in the ER. Will change antibiotic coverage to follow Antibiotic stewardship guidelines with Rocephin and Flagyl. Thankfully C diff PCR was negative. Will continue antibiotic coverage given leukocytosis in severity of illness. Will send stool for culture. Will monitor strict I&O's. Patient did receive 1 L of IV fluids by EMS and 1 L normal saline here as well as 1 L bolus of D5 LR followed by D5 LR at 150 mL an hour to complete volume repletion. Patient does have acute kidney injury due to above factors with metabolic acidosis. Metabolic acidosis is likely at least in some part due to starvation ketosis in addition to dehydration. Will repeat CBC and electrolyte panel this a.m.. Will aim for gradual correction of sodium. Will check orthostatic vital signs. Will monitor strict I&O's. Will monitor glucoses q.2 hours x2 if glucoses remain above 100 will change frequency to q.4 hours. Will advance diet as tolerated to regular diet. Patient does have a history of essential hypertension but blood pressures were borderline low on arrival to the ER. Will hold lisinopril. Patient is also on multiple NSAIDs which will be held due to acute kidney injury. Will avoid further nephrotoxic medications. MEDICAL DECISION MAKING NARRATIVE -Spoke with the ED provider in detail regarding patient's evaluation, workup and management -Patient seen and examined at bedside -Collaborated with patient's nurse at the bedside in detail and addressed all concerns -Labs, electrolytes, radiology, investigations and test results personally reviewed and interpreted unless otherwise specified -ED/Consult/Nursing/Ancilliary notes on the chart reviewed and appreciated -Spoke with patient at bedside and diagnosis and plan of care was discussed. All questions answered. Quality VTE Prophylaxis VTE prophylaxis: pharmacologic ordered (Lovenox 30 mg subQ daily.) Hospitalist [facility] Advance Care Plan I have confirmed that the patient's Advanced Care Plan is present, code status is documented, or surrogate decision maker is listed in patient medical record.: Yes Medication Reconciliation I have utilized all available resources to obtain, update and review the patients current medications (includes all prescriptions, OTC, herbals, cannabis, and nutritional supplements).: Yes
[2025-04-08] MEDS: cefTRIAXone 1 GM in SODIUM CHLORIDE 0.9% IV 50 ML 100 ML IVPB (06:11)
[2025-04-08 06:27] LABS: Hematocrit 35.5 % (37.0-47.0); Hemoglobin 11.8 g/dL (12.0-15.0); Immature Granulocyte Percent A 0.5 % (0-0.5); Immature Platelet Fraction Pct 3.0 % (0.9-11.2); Lymphocytes Absolute Auto 0.43 K/mm3 (0.9-3.2); Mean Corpuscular HGB Conc 33.2 g/dl (32-36); Mean Corpuscular Hemoglobin 32.4 pg (26-34); Mean Corpuscular Volume 97.5 fl (80-100); Nucleated Red Blood Cells Absolute Auto 0.000 K/mm3 (0.0-0.012); Nucleated Red Blood Cells Perc 0.0 % (0.0-0.2); Platelet Count Result 300 k/mm3 (150-375); Red Blood Count 3.64 M/mm3 (4.2-5.4); White Blood Count 20.3 K/mm3 (4.5-10.0)
[2025-04-08 06:52] LABS: Alanine Aminotransferase 17 U/L (6-35); Albumin Level 3.0 g/dL (3.5-5.1); Alkaline Phosphatase 62 U/L (38-126); Anion Gap 7 mmol/L (4-12); Aspartate Amino Transferase 33 U/L (14-36); Bilirubin,Total 0.3 mg/dL (0.2-1.3); Blood Urea Nitrogen 17 mg/dL (7-17); Calcium 8.3 mg/dL (8.4-10.2); Carbon Dioxide 22 mmol/L (22-30); Chloride 101 mmol/L (98-107); Estimated CRCL calculation 31 ml/min; Estimated Glomerular Filt Rate 36; Glucose 118 mg/dL (65-110); Potassium 4.3 mmol/L (3.4-5.0); Sodium 130 mmol/L (137-145); Total Protein 5.4 g/dL (6.3-8.2)
[2025-04-08] MEDS: CALCIUM CITRATE 315 MG/VITAMIN D 6.25 MCG (250 UNITS) TAB 1 TABLET PO (09:28)
[2025-04-08] MEDS: ENOXAPARIN 30 MG/0.3 ML SYRINGE SUB-Q (09:28)
[2025-04-08] MEDS: ASPIRIN 81 MG ENTERIC TABLET PO (09:28)
[2025-04-08] MEDS: PANTOPRAZOLE 40 MG TABLET PO ×2 (09:28→20:47)
--- NOTE | 2025-04-08 09:38 | PM.IMPN ---
Progress Note: A&P Assessment and Plan (1) Hypoglycemia: Code(s): E16.2 - Hypoglycemia, unspecified Status: Acute Assessment and Plan: Possibly due to dehydration Monitor glucose Q 2 hours x2 If glucose more than 100 glucose q.4 hours (2) Pancolitis: Code(s): K52.9 - Noninfective gastroenteritis and colitis, unspecified Status: Acute Assessment and Plan: Started on Rocephin and Flagyl C diff negative Monitor leukocytosis Continue D5 LR at 150 mL/hour Advance diet as tolerated (3) Acute kidney injury: Code(s): N17.9 - Acute kidney failure, unspecified Status: Acute Assessment and Plan: Possibly due to dehydration and NSAiDs Avoid nephrotoxic drugs 20 BUN and creatinine (4) Acute hyponatremia: Code(s): E87.1 - Hypo-osmolality and hyponatremia Status: Acute Assessment and Plan: TSH pending if necessary Cortisol will be measured Possible due to SIADH and dehydration Goal 6-8 meq/l in 24 hr period Urine sodium and osmolarity pending Subjective Date/time seen: 04/08/25 09:38 Interval history: Patient reports that she gets occasionally constipated. Yesterday she had a laxative and after that had multiple bowel movements. Currently she is doing better. Review of Systems Review of Systems: 12 systems were reviewed with pertinent positives and negatives per HPI. Except as documented in the HPI, all other systems were reviewed and are negative. Exam Narrative: Weight 70 kg BMI 29.2 Const: Other: No acute distress, well-developed but overweight, appears stated age HENMT: Other: Mucous membranes are tacky, no oral pharyngeal erythema, fair dentition Eyes: Other: Pupils are equal and reactive, no scleral icterus, no conjunctival pallor Neck: Other: No JVD, no lymphadenopathy Resp: Other: Clear to auscultation bilaterally, no increased work of breathing Cardio: Other: Regular rate, regular rhythm, 2+ bilateral radial pedal pulses GI: Other: Distended, soft, nontender, positive bowel sounds Skin: Other: No jaundice, no pallor, fingers are cool to touch but non mottled Neuro: Other: Alert oriented x4, speech is clear, no facial asymmetry Extrem: Other: No clubbing, cyanosis or edema, moves all extremities equally Psych: Other: Appropriate mood and affect, pleasant and cooperative Objective Data Vital Signs Vital Signs: Vital Signs - 24 hr 04/07/25 23:32 04/08/25 01:21 04/08/25 02:35 Temperature 97.3 F L Pulse Rate 88 83 87 Respiratory Rate 18 18 18 Blood Pressure 113/53 L 97/51 L 105/60 Pulse Oximetry 100 97 97 Oxygen Delivery Room Air 04/08/25 04:17 04/08/25 04:37 04/08/25 04:50 Temperature 97.9 F Pulse Rate 90 68 90 Respiratory Rate 18 18 Blood Pressure 143/68 H 118/85 Pulse Oximetry 99 99 Oxygen Delivery 04/08/25 05:00 04/08/25 05:01 04/08/25 06:00 Temperature 97.8 F Pulse Rate 88 88 Respiratory Rate 18 Blood Pressure 112/53 L Pulse Oximetry 100 Oxygen Delivery Room Air 04/08/25 07:14 04/08/25 08:00 04/08/25 08:05 Temperature 97.9 F Pulse Rate 85 Respiratory Rate 18 Blood Pressure 102/50 L 102/50 L 107/54 L Pulse Oximetry 98 Oxygen Delivery 04/08/25 08:15 Temperature Pulse Rate Respiratory Rate Blood Pressure 105/58 L Pulse Oximetry Oxygen Delivery Intake/Output Intake/Output: Intake & Output 04/05/25 04/06/25 04/07/25 04/08/25 23:59 23:59 23:59 23:59 Intake Total 3540 Output Total 45 Balance -45 3540 Meds/Results Medications: Active Medications Generic Name Dose Route Start Last Admin Trade Name Freq PRN Reason Stop Dose Admin Acetaminophen 650 mg 04/08/25 03:50 Acetaminophen 325 Mg Tablet PO Q4H PRN Mild Pain (1-3) or Fever Aspirin 81 mg 04/08/25 09:00 04/08/25 09:28 Aspirin 81 Mg Enteric Tablet PO 81 mg DAILY RIA Administration Calcium Citrate 1 tablet 04/08/25 09:00 04/08/25 09:28 Calcium Citrate 315 Mg/Vitamin D 6.25 Mcg (250 Units) Tab PO 1 tablet DAILY RIA Administration Enoxaparin Sodium 30 mg 04/08/25 09:00 04/08/25 09:28 Enoxaparin 30 Mg/0.3 Ml Syringe SUB-Q 30 mg DAILY RIA Administration Dextrose/Lactated Ringer's 1,000 mls @ 150 mls/hr 04/08/25 02:20 04/08/25 02:33 Dextrose 5%/Lactated Ringers IV CONT 100 mls/hr .Q6H40M RIA Administration Ceftriaxone Sodium 1 gm/ 50 mls @ 100 mls/hr 04/08/25 06:00 04/08/25 06:11 Sodium Chloride IVPB 100 mls/hr Q24H RIA Administration Metronidazole 500 mg in 100 mls @ 100 mls/hr 04/08/25 14:00 Flagyl 500 Mg/Iso Soln 100 Ml IVPB Q8HR RIA Ondansetron HCl 4 mg 04/08/25 03:50 Ondansetron Inj 4 Mg/2 Ml Vial IV PUSH Q4H PRN Nausea Pantoprazole Sodium 40 mg 04/08/25 09:00 04/08/25 09:28 Pantoprazole 40 Mg Tablet PO 40 mg Q12HR RIA Administration Radiology Results: ITS Impressions Abdomen/Pelvis CT 04/08/25 08:12 IMPRESSION: 1. Pancolitis. 2. Small volume of ascites. Labs Labs: Laboratory Results - last 24 hr 04/07/25 04/07/25 04/07/25 23:38 23:41 23:53 WBC 16.7 H RBC 4.26 Hgb 13.7 Hct 41.1 MCV 96.5 MCH 32.2 MCHC 33.3 RDW 12.2 Plt Count 367 MPV 9.7 Immature Gran % (Auto) 0.4 Neut % (Auto) 94.3 H Lymph % (Auto) 4.5 L Henderson % (Auto) 0.5 L Eos % (Auto) 0.1 Baso % (Auto) 0.2 Lymph # (Auto) 0.75 L Henderson # (Auto) 0.1 Eos # (Auto) 0.0 Baso # (Auto) 0.0 Abs Immat Gran (auto) 0.06 H Absolute Neuts (auto) 15.8 H Absolute Nucleated RBC 0.000 Nucleated RBC % 0.0 % Immature Plt Fraction Sodium 126 L Potassium 4.1 Chloride 95 L Carbon Dioxide 16 L Anion Gap 15 H BUN 19 H Creatinine 2.02 H Estim Creat Clear Calc 21 Estimated GFR 25 L Glucose 284 H POC Capillary Glucose 214 H Calcium 9.0 Magnesium 2.6 H Total Bilirubin 0.4 AST 37 H ALT 18 Alkaline Phosphatase 106 Total Protein 6.1 L Albumin 3.6 Lipase 83 Urine Color Dark yellow Urine Appearance Cloudy H Urine pH 5.5 Ur Specific [place] 1.020 Urine Protein 1+ H Urine Glucose (UA) 3+ H Urine Ketones 1+ H Ur Blood (Man) Negative Urine Nitrate Negative Urine Bilirubin 1+ H Urine Urobilinogen 1.0 Add Ur Microanalysis Reviewed Leukocyte Esterase Rfl 1+ H Urine RBC 0-2 Urine WBC 6-10 H Ur Squamous Epith Cells Moderate Urine Bacteria Trace Urine Casts >20 C. difficile (PCR) 04/08/25 04/08/25 04/08/25 00:14 01:14 01:40 WBC RBC Hgb Hct MCV MCH MCHC RDW Plt Count MPV Immature Gran % (Auto) Neut % (Auto) Lymph % (Auto) [place] % (Auto) Eos % (Auto) Baso % (Auto) Lymph # (Auto) Henderson # (Auto) Eos # (Auto) Baso # (Auto) Abs Immat Gran (auto) Absolute Neuts (auto) Absolute Nucleated RBC Nucleated RBC % % Immature Plt Fraction Sodium Potassium Chloride Carbon Dioxide Anion Gap BUN Creatinine Estim Creat Clear Calc Estimated GFR Glucose POC Capillary Glucose 172 H 30 L* 99 Calcium Magnesium Total Bilirubin AST ALT Alkaline Phosphatase Total Protein Albumin Lipase Urine Color Urine Appearance Urine pH Ur Specific [place] Urine Protein Urine Glucose (UA) Urine Ketones Ur Blood (Man) Urine Nitrate Urine Bilirubin Urine Urobilinogen Add Ur Microanalysis Leukocyte Esterase Rfl Urine RBC Urine WBC Ur Squamous Epith Cells Urine Bacteria Urine Casts C. difficile (PCR) 04/08/25 04/08/25 04/08/25 02:13 02:57 03:14 WBC RBC Hgb Hct MCV MCH MCHC RDW Plt Count MPV Immature Gran % (Auto) Neut % (Auto) Lymph % (Auto) [place] % (Auto) Eos % (Auto) Baso % (Auto) Lymph # (Auto) [place] # (Auto) Eos # (Auto) Baso # (Auto) Abs Immat Gran (auto) Absolute Neuts (auto) Absolute Nucleated RBC Nucleated RBC % % Immature Plt Fraction Sodium Potassium Chloride Carbon Dioxide Anion Gap BUN Creatinine Estim Creat Clear Calc Estimated GFR Glucose POC Capillary Glucose 140 H 93 Calcium Magnesium Total Bilirubin AST ALT Alkaline Phosphatase Total Protein Albumin Lipase Urine Color Urine Appearance Urine pH Ur Specific [place] Urine Protein Urine Glucose (UA) Urine Ketones Ur Blood (Man) Urine Nitrate Urine Bilirubin Urine Urobilinogen Add Ur Microanalysis Leukocyte Esterase Rfl Urine RBC Urine WBC Ur Squamous Epith Cells Urine Bacteria Urine Casts C. difficile (PCR) Negative 04/08/25 04/08/25 04/08/25 04:20 05:57 05:59 WBC 20.3 H RBC 3.64 L Hgb 11.8 L Hct 35.5 L MCV 97.5 MCH 32.4 MCHC 33.2 RDW 12.2 Plt Count 300 MPV 10.5 H Immature Gran % (Auto) 0.5 Neut % (Auto) 92.2 H Lymph % (Auto) 2.1 L Henderson % (Auto) 5.1 Eos % (Auto) 0.0 Baso % (Auto) 0.1 L Lymph # (Auto) 0.43 L Henderson # (Auto) 1.0 H Eos # (Auto) 0.0 Baso # (Auto) 0.0 Abs Immat Gran (auto) 0.10 H Absolute Neuts (auto) 18.7 H Absolute Nucleated RBC 0.000 Nucleated RBC % 0.0 % Immature Plt Fraction 3.0 Sodium 130 L Potassium 4.3 Chloride 101 Carbon Dioxide 22 Anion Gap 7 BUN 17 Creatinine 1.48 H Estim Creat Clear Calc 31 Estimated GFR 36 L Glucose 118 H POC Capillary Glucose 81 128 H Calcium 8.3 L Magnesium Total Bilirubin 0.3 AST 33 ALT 17 Alkaline Phosphatase 62 Total Protein 5.4 L Albumin 3.0 L Lipase Urine Color Urine Appearance Urine pH Ur Specific [place] Urine Protein Urine Glucose (UA) Urine Ketones Ur Blood (Man) Urine Nitrate Urine Bilirubin Urine Urobilinogen Add Ur Microanalysis Leukocyte Esterase Rfl Urine RBC Urine WBC Ur Squamous Epith Cells Urine Bacteria Urine Casts C. difficile (PCR) 04/08/25 07:12 WBC RBC Hgb Hct MCV MCH MCHC RDW Plt Count MPV Immature Gran % (Auto) Neut % (Auto) Lymph % (Auto) [place] % (Auto) Eos % (Auto) Baso % (Auto) Lymph # (Auto) [place] # (Auto) Eos # (Auto) Baso # (Auto) Abs Immat Gran (auto) Absolute Neuts (auto) Absolute Nucleated RBC Nucleated RBC % % Immature Plt Fraction Sodium Potassium Chloride Carbon Dioxide Anion Gap BUN Creatinine Estim Creat Clear Calc Estimated GFR Glucose POC Capillary Glucose 135 H Calcium Magnesium Total Bilirubin AST ALT Alkaline Phosphatase Total Protein Albumin Lipase Urine Color Urine Appearance Urine pH Ur Specific [place] Urine Protein Urine Glucose (UA) Urine Ketones Ur Blood (Man) Urine Nitrate Urine Bilirubin Urine Urobilinogen Add Ur Microanalysis Leukocyte Esterase Rfl Urine RBC Urine WBC Ur Squamous Epith Cells Urine Bacteria Urine Casts C. difficile (PCR) Quality VTE Prophylaxis VTE prophylaxis: pharmacologic ordered (Lovenox 30 mg subQ daily.) Hospitalist MIPS Advance Care Plan I have confirmed that the patient's Advanced Care Plan is present, code status is documented, or surrogate decision maker is listed in patient medical record.: Yes Medication Reconciliation I have utilized all available resources to obtain, update and review the patients current medications (includes all prescriptions, OTC, herbals, cannabis, and nutritional supplements).: Yes
[2025-04-08] MEDS: DEXTROSE 5%/LACTATED RINGERS 1,000 ML 150 ML IV CONT (09:39)
[2025-04-09] VITALS (9 sets, daily range): BP systolic 93–124; BP diastolic 45–59; PULSE 68–80; RESP 15–18; TEMP 36.6–37.2; O2SAT 95–98
[2025-04-09 03:58] LABS: Hematocrit 29.7 % (37.0-47.0); Hemoglobin 9.9 g/dL (12.0-15.0); Mean Corpuscular HGB Conc 33.3 g/dl (32-36); Mean Corpuscular Hemoglobin 32.5 pg (26-34); Mean Corpuscular Volume 97.4 fl (80-100); Platelet Count Result 329 k/mm3 (150-375); Red Blood Count 3.05 M/mm3 (4.2-5.4); White Blood Count 12.7 K/mm3 (4.5-10.0)
[2025-04-09 04:24] LABS: Alanine Aminotransferase 12 U/L (6-35); Albumin Level 2.4 g/dL (3.5-5.1); Alkaline Phosphatase 64 U/L (38-126); Anion Gap 1 mmol/L (4-12); Aspartate Amino Transferase 34 U/L (14-36); Bilirubin,Total < 0.1 mg/dL (0.2-1.3); Blood Urea Nitrogen 8 mg/dL (7-17); Calcium 7.9 mg/dL (8.4-10.2); Carbon Dioxide 26 mmol/L (22-30); Chloride 108 mmol/L (98-107); Estimated CRCL calculation 42 ml/min; Estimated Glomerular Filt Rate 52; Glucose 100 mg/dL (65-110); Potassium 3.4 mmol/L (3.4-5.0); Sodium 135 mmol/L (137-145); Total Protein 4.6 g/dL (6.3-8.2)
[2025-04-09] MEDS: cefTRIAXone 1 GM in SODIUM CHLORIDE 0.9% IV 50 ML 100 ML IVPB (05:15)
[2025-04-09] MEDS: metroNIDAZOLE 500 MG/ISO 100ML 500 MG/100 ML BAG 100 MG IVPB ×3 (05:23→21:06)
[2025-04-09] MEDS: DEXTROSE 5%/LACTATED RINGERS 1,000 ML 100 ML IV CONT ×2 (06:18→15:20)
[2025-04-09] MEDS: ASPIRIN 81 MG ENTERIC TABLET PO (09:59)
[2025-04-09] MEDS: CALCIUM CITRATE 315 MG/VITAMIN D 6.25 MCG (250 UNITS) TAB 1 TABLET PO (09:59)
[2025-04-09] MEDS: PANTOPRAZOLE 40 MG TABLET PO ×2 (09:59→21:06)
[2025-04-09] MEDS: ENOXAPARIN 40 MG/0.4 ML SYRINGE SUB-Q (10:00)
--- NOTE | 2025-04-09 10:49 | PM.IMPN ---
Progress Note: A&P Assessment and Plan (1) Hypoglycemia: Code(s): E16.2 - Hypoglycemia, unspecified Status: Acute (2) Recurrent severe hypoglycemia: Code(s): E16.2 - Hypoglycemia, unspecified Status: Acute (3) Hyperosmolar hyponatremia: Code(s): E87.0 - Hyperosmolality and hypernatremia; E87.1 - Hypo-osmolality and hyponatremia Status: Acute (4) Pancolitis: Code(s): K52.9 - Noninfective gastroenteritis and colitis, unspecified Status: Acute (5) Acute kidney injury: Code(s): N17.9 - Acute kidney failure, unspecified Status: Acute (6) Acute dehydration: Code(s): E86.0 - Dehydration Status: Acute Plan 64-year-old female with a past medical history of essential hypertension, hyperlipidemia, osteoarthritis and GERD who presented to the ER from home via EMS due to nausea vomiting and diarrhea. Accu-Chek in the field was 40. 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 C diff testing was negative. (1) Hypoglycemia: Possibly due to dehydration Blood glucose checks q.4 hours Glucose levels between 100-120 right now Continue with Ringer lactate D5 Will stop IV fluids when her blood glucose is persistently above 100/120 (2) Pancolitis: Negative C diff Diet as tolerated Continue with ceftriaxone, Flagyl Zofran p.r.n. Continue with IV fluids as mentioned above (3) Acute kidney injury: Improving kidney function Possibly due to dehydration and NSAiDs Avoid nephrotoxic drugs Recheck BMP in a.m. (4) Acute hyponatremia: Sodium levels have remarkably improved Recheck BMP in a.m. 5. DVT prophylaxis: Lovenox 6. Code status: Full 7. Disposition: Can be transferred out of IMU Time Spent With Patient Time: 38 minutes Subjective Date/time seen: 04/09/25 10:49 Interval history: Feeling better, no acute events overnight Review of Systems Review of Systems: 12 systems were reviewed with pertinent positives and negatives per HPI. Except as documented in the HPI, all other systems were reviewed and are negative. Exam Narrative: Weight 70 kg BMI 29.2 Const: Other: No acute distress, well-developed but overweight, appears stated age HENMT: Other: Mucous membranes are tacky, no oral pharyngeal erythema, fair dentition Eyes: Other: Pupils are equal and reactive, no scleral icterus, no conjunctival pallor Neck: Other: No JVD, no lymphadenopathy Resp: Other: Clear to auscultation bilaterally, no increased work of breathing Cardio: Other: Regular rate, regular rhythm, 2+ bilateral radial pedal pulses GI: Other: Distended, soft, nontender, positive bowel sounds Skin: Other: No jaundice, no pallor, fingers are cool to touch but non mottled Neuro: Other: Alert oriented x4, speech is clear, no facial asymmetry Extrem: Other: No clubbing, cyanosis or edema, moves all extremities equally Psych: Other: Appropriate mood and affect, pleasant and cooperative Objective Data Vital Signs Vital Signs: Vital Signs - 24 hr 04/08/25 11:56 04/08/25 12:00 04/08/25 12:00 Temperature 98.2 F Pulse Rate 83 81 Respiratory Rate 18 Blood Pressure 99/49 L Pulse Oximetry 100 Oxygen Delivery Room Air Fraction of Inspired Oxygen 04/08/25 14:00 04/08/25 16:00 04/08/25 16:00 Temperature 98.2 F Pulse Rate 95 81 Respiratory Rate 18 Blood Pressure 102/48 L Pulse Oximetry 99 Oxygen Delivery Room Air Fraction of Inspired Oxygen 04/08/25 16:00 04/08/25 18:00 04/08/25 20:00 Temperature 98.8 F Pulse Rate 84 81 78 Respiratory Rate 18 Blood Pressure 105/53 L Pulse Oximetry 99 Oxygen Delivery Fraction of Inspired Oxygen 04/08/25 20:00 04/08/25 20:30 04/08/25 20:45 Temperature Pulse Rate 77 78 80 Respiratory Rate 18 Blood Pressure Pulse Oximetry 99 96 Oxygen Delivery Room Air Autopap Fraction of Inspired Oxygen 21 04/08/25 22:00 04/08/25 23:03 04/09/25 00:00 Temperature 98.7 F Pulse Rate 88 79 79 Respiratory Rate 18 18 Blood Pressure 99/45 L Pulse Oximetry 95 95 Oxygen Delivery Room Air Fraction of Inspired Oxygen 04/09/25 00:00 04/09/25 02:00 04/09/25 04:00 Temperature 98.6 F Pulse Rate 76 74 69 Respiratory Rate 18 Blood Pressure 93/52 L Pulse Oximetry 96 Oxygen Delivery Fraction of Inspired Oxygen 04/09/25 04:00 04/09/25 04:00 04/09/25 06:00 Temperature Pulse Rate 69 73 75 Respiratory Rate 18 Blood Pressure Pulse Oximetry 96 Oxygen Delivery Room Air Fraction of Inspired Oxygen 04/09/25 08:00 Temperature 97.9 F Pulse Rate 69 Respiratory Rate 16 Blood Pressure 117/56 L Pulse Oximetry 98 Oxygen Delivery Fraction of Inspired Oxygen Intake/Output Intake/Output: Intake & Output 04/06/25 04/07/25 04/08/25 04/09/25 23:59 23:59 23:59 23:59 Intake Total 5947.5 1920 Output Total 45 600 Balance -45 5947.5 1320 Meds/Results Medications: Active Medications Generic Name Dose Route Start Last Admin Trade Name Freq PRN Reason Stop Dose Admin Acetaminophen 650 mg 04/08/25 03:50 Acetaminophen 325 Mg Tablet PO Q4H PRN Mild Pain (1-3) or Fever Aspirin 81 mg 04/08/25 09:00 04/09/25 09:59 Aspirin 81 Mg Enteric Tablet PO 81 mg DAILY RIA Administration Calcium Citrate 1 tablet 04/08/25 09:00 04/09/25 09:59 Calcium Citrate 315 Mg/Vitamin D 6.25 Mcg (250 Units) Tab PO 1 tablet DAILY RIA Administration Enoxaparin Sodium 40 mg 04/09/25 09:55 04/09/25 10:00 Enoxaparin 40 Mg/0.4 Ml Syringe SUB-Q 40 mg DAILY RIA Administration Dextrose/Lactated Ringer's 1,000 mls @ 100 mls/hr 04/08/25 02:20 04/09/25 06:18 Dextrose 5%/Lactated Ringers IV CONT 100 mls/hr .Q10H RIA Administration Ceftriaxone Sodium 1 gm/ 50 mls @ 100 mls/hr 04/08/25 06:00 04/09/25 05:45 Sodium Chloride IVPB Infused Q24H RIA Infusion Metronidazole 500 mg in 100 mls @ 100 mls/hr 04/08/25 14:00 04/09/25 06:23 Flagyl 500 Mg/Iso Soln 100 Ml IVPB Infused Q8HR RIA Infusion Ondansetron HCl 4 mg 04/08/25 03:50 Ondansetron Inj 4 Mg/2 Ml Vial IV PUSH Q4H PRN Nausea Pantoprazole Sodium 40 mg 04/08/25 09:00 04/09/25 09:59 Pantoprazole 40 Mg Tablet PO 40 mg Q12HR RIA Administration Potassium Chloride 40 meq 04/09/25 10:49 Potassium Chloride 20 Meq Er Tablet PO 04/09/25 10:50 ONCE ONE Radiology Results: ITS Impressions Abdomen/Pelvis CT 04/08/25 08:12 IMPRESSION: 1. Pancolitis. 2. Small volume of ascites. Labs Labs: Laboratory Results - last 24 hr 04/08/25 04/08/25 04/08/25 11:30 14:34 16:47 WBC RBC Hgb Hct MCV MCH MCHC RDW Plt Count MPV Sodium Potassium Chloride Carbon Dioxide Anion Gap BUN Creatinine Estim Creat Clear Calc Estimated GFR Glucose POC Capillary Glucose 119 H 125 H 102 Calcium Total Bilirubin AST ALT Alkaline Phosphatase Total Protein Albumin 04/08/25 04/09/25 04/09/25 20:55 00:25 03:44 WBC 12.7 H RBC 3.05 L Hgb 9.9 L Hct 29.7 L MCV 97.4 MCH 32.5 MCHC 33.3 RDW 12.6 Plt Count 329 MPV 9.5 Sodium 135 L Potassium 3.4 Chloride 108 H Carbon Dioxide 26 Anion Gap 1 L BUN 8 D Creatinine 1.07 H Estim Creat Clear Calc 42 Estimated GFR 52 L Glucose 100 POC Capillary Glucose 123 H 106 H Calcium 7.9 L Total Bilirubin < 0.1 L AST 34 ALT 12 Alkaline Phosphatase 64 Total Protein 4.6 L Albumin 2.4 L 04/09/25 07:24 WBC RBC Hgb Hct MCV MCH MCHC RDW Plt Count MPV Sodium Potassium Chloride Carbon Dioxide Anion Gap BUN Creatinine Estim Creat Clear Calc Estimated GFR Glucose POC Capillary Glucose 100 Calcium Total Bilirubin AST ALT Alkaline Phosphatase Total Protein Albumin Quality VTE Prophylaxis VTE prophylaxis: pharmacologic ordered
[2025-04-09] MEDS: POTASSIUM CHLORIDE 20 MEQ ER TABLET 40 MEQ PO (12:24)
--- NOTE | 2025-04-09 16:22 | PC.NURSE ---
BG 63. Pt given 4 oz of apple juice. BG rechecked [address] Yeboah made aware. New orders noted for 25gm of D50, hypoglycemic protocol ordered.
[2025-04-09] MEDS: DEXTROSE 50% 25 GM/50 ML SYRINGE IV PUSH (16:26)
--- NOTE | 2025-04-09 23:54 | PC.NURSE ---
04/09/252119-Pt SBAR faxed to [address] [place] [address]. [address] [place] [address] called and notified that Pt's SBAR has been sent. [id number]-Attempted to call report to KAYLEE Moyer. from [address] [place] [address].
--- NOTE | 2025-04-09 23:56 | PC.NURSE ---
This patient, Romina Brand, was transferred to room 343on 04/09/25 at 2231. Personal belongings sent with patient. Report given to KAYLEE Moyer. at 2215. Appropriate documentation sent with patient. Pt's family already aware of Pt's room Tx and updated with the Pt's new room number.
[2025-04-10] VITALS (8 sets, daily range): BP systolic 98–144; BP diastolic 55–71; PULSE 68–86; RESP 15–16; TEMP 36.8; O2SAT 96–97
[2025-04-10] MEDS: DEXTROSE 5%/LACTATED RINGERS 1,000 ML 100 ML IV CONT ×3 (02:05→23:00)
[2025-04-10] MEDS: cefTRIAXone 1 GM in SODIUM CHLORIDE 0.9% IV 50 ML 100 ML IVPB (05:24)
[2025-04-10 05:45] LABS: Hematocrit 31.6 % (37.0-47.0); Hemoglobin 10.2 g/dL (12.0-15.0); Immature Granulocyte Percent A 0.3 % (0-0.5); Lymphocytes Absolute Auto 2.11 K/mm3 (0.9-3.2); Mean Corpuscular HGB Conc 32.3 g/dl (32-36); Mean Corpuscular Hemoglobin 32.2 pg (26-34); Mean Corpuscular Volume 99.7 fl (80-100); Nucleated Red Blood Cells Absolute Auto 0.000 K/mm3 (0.0-0.012); Nucleated Red Blood Cells Perc 0.0 % (0.0-0.2); Platelet Count Result 318 k/mm3 (150-375); Red Blood Count 3.17 M/mm3 (4.2-5.4); White Blood Count 7.8 K/mm3 (4.5-10.0)
[2025-04-10] MEDS: metroNIDAZOLE 500 MG/ISO 100ML 500 MG/100 ML BAG 100 MG IVPB ×2 (05:50→15:18)
[2025-04-10 06:16] LABS: Anion Gap 3 mmol/L (4-12); Blood Urea Nitrogen 3 mg/dL (7-17); Calcium 8.2 mg/dL (8.4-10.2); Carbon Dioxide 26 mmol/L (22-30); Chloride 107 mmol/L (98-107); Estimated CRCL calculation 50 ml/min; Estimated Glomerular Filt Rate > 60; Glucose 101 mg/dL (65-110); Potassium 3.8 mmol/L (3.4-5.0); Sodium 136 mmol/L (137-145)
[2025-04-10] MEDS: ASPIRIN 81 MG ENTERIC TABLET PO (10:02)
[2025-04-10] MEDS: ENOXAPARIN 40 MG/0.4 ML SYRINGE SUB-Q (10:02)
[2025-04-10] MEDS: PANTOPRAZOLE 40 MG TABLET PO ×2 (10:02→20:21)
[2025-04-10] MEDS: CALCIUM CITRATE 315 MG/VITAMIN D 6.25 MCG (250 UNITS) TAB 1 TABLET PO (10:02)
--- NOTE | 2025-04-10 16:54 | PM.IMPN ---
Progress Note: A&P Assessment and Plan (1) Hypoglycemia: Code(s): E16.2 - Hypoglycemia, unspecified Status: Acute (2) Recurrent severe hypoglycemia: Code(s): E16.2 - Hypoglycemia, unspecified Status: Acute (3) Hyperosmolar hyponatremia: Code(s): E87.0 - Hyperosmolality and hypernatremia; E87.1 - Hypo-osmolality and hyponatremia Status: Acute (4) Pancolitis: Code(s): K52.9 - Noninfective gastroenteritis and colitis, unspecified Status: Acute (5) Acute kidney injury: Code(s): N17.9 - Acute kidney failure, unspecified Status: Acute (6) Acute dehydration: Code(s): E86.0 - Dehydration Status: Acute Plan 64-year-old female with a past medical history of essential hypertension, hyperlipidemia, osteoarthritis and GERD who presented to the ER from home via EMS due to nausea vomiting and diarrhea. Accu-Chek in the field was 40. 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 C diff testing was negative. Patient tells me she took 3 Ex-Lax pills at once because she was constipated. She was already counseled about taking more precaution in using laxatives. (1) Hypoglycemia: Possibly due to dehydration Blood glucose checks q.4 hours Continue with Ringer lactate D5 Blood sugars in the normal/low range. She is tolerating diet, continue lactated Ringer's with dextrose for now, you to monitor trend of blood sugar. (2) Pancolitis: Negative C diff, likely due to laxative overuse Diet as tolerated Discontinue antibiotics Bigeminy: Check magnesium, replace potassium (3) Acute kidney injury: Resolved, due to dehydration (4) Acute hyponatremia: Resolve, due to hypovolemia 5. DVT prophylaxis: Lovenox 6. Code status: Full 7. Disposition: Stable on medical floor. Continue telemetry. Time Spent With Patient Time with patient: 25 - 35 minutes Subjective Date/time seen: 04/10/25 16:54 Interval history: No major acute overnight events. Patient bowel movements have slowed down. She feels better. Tolerating diet. Review of Systems Review of Systems: All systems reviewed & are unremarkable except as noted in HPI and below (Subjective) Exam Const: General: comfortable and no acute distress HENMT: Mouth: Yes moist mucous membranes Eyes: Pupils: Equal, round and reactive pupils present Neck: Neck: supple Resp: Effort & Inspection: normal respiratory effort Auscultation: clear to auscultation bilaterally Cardio: Rate: regular rate Rhythm: regular rhythm GI: Inspection: non-distended GI Palp: Yes Soft to palpation Neuro: Motor exam (neuro): 5/5 motor strength present throughout Extrem: General: no edema Objective Data Vital Signs Vital Signs: Vital Signs - 24 hr 04/09/25 20:00 04/09/25 20:40 04/09/25 22:55 Temperature 98.5 F Pulse Rate 80 72 Respiratory Rate 15 Blood Pressure 115/59 L Pulse Oximetry 97 Oxygen Delivery Room Air 04/10/25 00:00 04/10/25 04:00 04/10/25 06:00 Temperature 98.2 F Pulse Rate 86 78 76 Respiratory Rate 15 Blood Pressure 98/55 L Pulse Oximetry 96 Oxygen Delivery 04/10/25 08:00 04/10/25 10:30 04/10/25 12:00 Temperature Pulse Rate 69 74 Respiratory Rate Blood Pressure Pulse Oximetry Oxygen Delivery Room Air 04/10/25 15:51 04/10/25 16:00 Temperature 98.2 F Pulse Rate 71 68 Respiratory Rate 16 Blood Pressure 144/71 H Pulse Oximetry 97 Oxygen Delivery Intake/Output Intake/Output: Intake & Output 04/07/25 04/08/25 04/09/25 04/10/25 23:59 23:59 23:59 23:59 Intake Total 5947.5 4150 2338 Output Total 45 1150 Balance -45 5947.5 3000 2338 Meds/Results Medications: Active Medications Generic Name Dose Route Start Last Admin Trade Name Freq PRN Reason Stop Dose Admin Acetaminophen 650 mg 04/08/25 03:50 Acetaminophen 325 Mg Tablet PO Q4H PRN Mild Pain (1-3) or Fever Aspirin 81 mg 04/08/25 09:00 04/10/25 10:02 Aspirin 81 Mg Enteric Tablet PO 81 mg DAILY RIA Administration Calcium Citrate 1 tablet 04/08/25 09:00 04/10/25 10:02 Calcium Citrate 315 Mg/Vitamin D 6.25 Mcg (250 Units) Tab PO 1 tablet DAILY RIA Administration Dextrose 12.5 gm 04/09/25 16:19 Dextrose 50% 25 Gm/50 Ml Syringe IV PUSH PRN PRN Hypoglycemia Protocol Enoxaparin Sodium 40 mg 04/09/25 09:55 04/10/25 10:02 Enoxaparin 40 Mg/0.4 Ml Syringe SUB-Q 40 mg DAILY RIA Administration Glucagon 1 mg 04/09/25 16:19 Glucagon For Inj 1 Mg Vial IM PRN PRN Hypoglycemia Protocol Glucose 15 gm 04/09/25 16:19 Glucose Oral Gel 15 Gm Of Glucse In 37.5 Gm Tube PO PRN PRN Hypoglycemia Protocol Dextrose/Lactated Ringer's 1,000 mls @ 100 mls/hr 04/08/25 02:20 04/10/25 12:53 Dextrose 5%/Lactated Ringers IV CONT 100 mls/hr .Q10H RIA Administration Ceftriaxone Sodium 1 gm/ 50 mls @ 100 mls/hr 04/08/25 06:00 04/10/25 05:24 Sodium Chloride IVPB 100 mls/hr Q24H RIA Administration Metronidazole 500 mg in 100 mls @ 100 mls/hr 04/08/25 14:00 04/10/25 15:18 Flagyl 500 Mg/Iso Soln 100 Ml IVPB 100 mls/hr Q8HR RIA Administration Dextrose 1,000 mls @ 100 mls/hr 04/09/25 16:19 Dextrose 5% 1,000 Ml IVPB PRN PRN Hypoglycemia Protocol Ondansetron HCl 4 mg 04/08/25 03:50 Ondansetron Inj 4 Mg/2 Ml Vial IV PUSH Q4H PRN Nausea Pantoprazole Sodium 40 mg 04/08/25 09:00 04/10/25 10:02 Pantoprazole 40 Mg Tablet PO 40 mg Q12HR RIA Administration Radiology Results: ITS Impressions Abdomen/Pelvis CT 04/08/25 08:12 IMPRESSION: 1. Pancolitis. 2. Small volume of ascites. Labs Labs: Laboratory Results - last 24 hr 04/09/25 04/09/25 04/09/25 15:50 16:15 16:48 WBC RBC Hgb Hct MCV MCH MCHC RDW Plt Count MPV Immature Gran % (Auto) Neut % (Auto) Lymph % (Auto) [place] % (Auto) Eos % (Auto) Baso % (Auto) Lymph # (Auto) [place] # (Auto) Eos # (Auto) Baso # (Auto) Abs Immat Gran (auto) Absolute Neuts (auto) Absolute Nucleated RBC Nucleated RBC % Sodium Potassium Chloride Carbon Dioxide Anion Gap BUN Creatinine Estim Creat Clear Calc Estimated GFR Glucose POC Capillary Glucose 63 L 61 L 147 H Calcium 04/09/25 04/10/25 04/10/25 20:13 00:21 04:34 WBC RBC Hgb Hct MCV MCH MCHC RDW Plt Count MPV Immature Gran % (Auto) Neut % (Auto) Lymph % (Auto) [place] % (Auto) Eos % (Auto) Baso % (Auto) Lymph # (Auto) [place] # (Auto) Eos # (Auto) Baso # (Auto) Abs Immat Gran (auto) Absolute Neuts (auto) Absolute Nucleated RBC Nucleated RBC % Sodium Potassium Chloride Carbon Dioxide Anion Gap BUN Creatinine Estim Creat Clear Calc Estimated GFR Glucose POC Capillary Glucose 114 H 89 75 Calcium 04/10/25 04/10/25 04/10/25 05:25 08:47 12:25 WBC 7.8 RBC 3.17 L Hgb 10.2 L Hct 31.6 L MCV 99.7 MCH 32.2 MCHC 32.3 RDW 12.4 Plt Count 318 MPV 9.7 Immature Gran % (Auto) 0.3 Neut % (Auto) 65.8 Lymph % (Auto) 26.9 [place] % (Auto) 3.8 Eos % (Auto) 2.8 Baso % (Auto) 0.4 Lymph # (Auto) 2.11 [place] # (Auto) 0.3 Eos # (Auto) 0.2 Baso # (Auto) 0.0 Abs Immat Gran (auto) 0.02 Absolute Neuts (auto) 5.2 Absolute Nucleated RBC 0.000 Nucleated RBC % 0.0 Sodium 136 L Potassium 3.8 Chloride 107 Carbon Dioxide 26 Anion Gap 3 L BUN 3 L D Creatinine 0.89 Estim Creat Clear Calc 50 Estimated GFR > 60 Glucose 101 POC Capillary Glucose 85 91 Calcium 8.2 L
[2025-04-10 17:05] LABS: Magnesium 1.8 mg/dL (1.6-2.3)
[2025-04-10] MEDS: POTASSIUM CHLORIDE 20 MEQ ER TABLET PO (17:30)
[2025-04-10] MEDS: MAGNESIUM SULF 2 GM/WATER 50ML 2 GM/50 ML BAG IVPB (17:30)
[2025-04-11] VITALS (10 sets, daily range): BP systolic 114–147; BP diastolic 55–76; PULSE 68–95; RESP 16–20; TEMP 36.1–36.5; O2SAT 95–100
[2025-04-11 05:49] LABS: Hematocrit 34.6 % (37.0-47.0); Hemoglobin 11.3 g/dL (12.0-15.0); Immature Granulocyte Percent A 0.2 % (0-0.5); Lymphocytes Absolute Auto 1.67 K/mm3 (0.9-3.2); Mean Corpuscular HGB Conc 32.7 g/dl (32-36); Mean Corpuscular Hemoglobin 32.3 pg (26-34); Mean Corpuscular Volume 98.9 fl (80-100); Nucleated Red Blood Cells Absolute Auto 0.000 K/mm3 (0.0-0.012); Nucleated Red Blood Cells Perc 0.0 % (0.0-0.2); Platelet Count Result 331 k/mm3 (150-375); Red Blood Count 3.50 M/mm3 (4.2-5.4); White Blood Count 5.3 K/mm3 (4.5-10.0)
[2025-04-11 06:10] LABS: Anion Gap 2 mmol/L (4-12); Blood Urea Nitrogen 3 mg/dL (7-17); Calcium 8.3 mg/dL (8.4-10.2); Carbon Dioxide 28 mmol/L (22-30); Chloride 105 mmol/L (98-107); Estimated CRCL calculation 50 ml/min; Estimated Glomerular Filt Rate > 60; Glucose 90 mg/dL (65-110); Magnesium 2.2 mg/dL (1.6-2.3); Potassium 4.0 mmol/L (3.4-5.0); Sodium 135 mmol/L (137-145)
[2025-04-11] MEDS: PANTOPRAZOLE 40 MG TABLET PO (08:58)
[2025-04-11] MEDS: CALCIUM CITRATE 315 MG/VITAMIN D 6.25 MCG (250 UNITS) TAB 1 TABLET PO (08:58)
[2025-04-11] MEDS: ASPIRIN 81 MG ENTERIC TABLET PO (08:58)
[2025-04-11] MEDS: ENOXAPARIN 40 MG/0.4 ML SYRINGE SUB-Q (08:59)
[2025-04-11] MEDS: DEXTROSE 5%/LACTATED RINGERS 1,000 ML 100 ML IV CONT (09:04)
--- NOTE | 2025-04-11 16:38 | P.PNIM_ITS ---
Progress Note: A&P Assessment and Plan (1) Hypoglycemia: Code(s): E16.2 - Hypoglycemia, unspecified Status: Acute (2) Recurrent severe hypoglycemia: Code(s): E16.2 - Hypoglycemia, unspecified Status: Acute (3) Hyperosmolar hyponatremia: Code(s): E87.0 - Hyperosmolality and hypernatremia; E87.1 - Hypo-osmolality and hyponatremia Status: Acute (4) Pancolitis: Code(s): K52.9 - Noninfective gastroenteritis and colitis, unspecified Status: Acute (5) Acute kidney injury: Code(s): N17.9 - Acute kidney failure, unspecified Status: Acute (6) Acute dehydration: Code(s): E86.0 - Dehydration Status: Acute Plan 64-year-old female with a past medical history of essential hypertension, hyperlipidemia, osteoarthritis and GERD who presented to the ER from home via EMS due to nausea vomiting and diarrhea. Accu-Chek in the field was 40. 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 C diff testing was negative. Patient tells me she took 3 Ex-Lax pills at once because she was constipated. She was already counseled about taking more precaution in using laxatives. Hypoglycemia: No episodes of hypoglycemia. Discontinue dextrose infusion. Accu-Cheks a.c. HS. She is tolerating diet, eating well. Discussed with the patient and she is amenable to this plan. Pancolitis: Negative C diff, likely due to laxative overuse. Antibiotics discontinued Bigeminy: Keep potassium greater than 4, magnesium greater than 2. Check echocardiogram. Holter monitor on discharge. Acute kidney injury: Resolved, due to dehydration/hypovolemia Acute hyponatremia: Resolve, due to hypovolemia GERD: Continue [employer] Protonix 40 mg p.o. q.a.m. Resume [employer] armodafinil, lisinopril, atorvastatin, aspirin 5. DVT prophylaxis: Lovenox 6. Code status: Full 7. Disposition: Stable on medical floor. Continue telemetry. Time Spent With Patient Time with patient: 25 - 35 minutes Subjective Date/time seen: 04/11/25 16:38 Interval history: No bowel movement today. Patient feels great. Tolerating diet. No episodes of hypoglycemia. Review of Systems Review of Systems: All systems reviewed & are unremarkable except as noted in HPI and below (Subjective) Exam Const: General: comfortable and no acute distress Other: A&O x3 HENMT: Mouth: Yes moist mucous membranes Eyes: Pupils: Equal, round and reactive pupils present Neck: Neck: supple Resp: Effort & Inspection: normal respiratory effort Auscultation: clear to auscultation bilaterally Cardio: Rate: regular rate Rhythm: regular rhythm GI: Inspection: non-distended GI Palp: Yes Soft to palpation Neuro: Motor exam (neuro): 5/5 motor strength present throughout Extrem: General: no edema Objective Data Vital Signs Vital Signs: Vital Signs - 24 hr 04/10/25 20:00 04/10/25 20:00 04/11/25 00:00 Temperature 97.7 F Pulse Rate 84 68 Respiratory Rate 16 Blood Pressure 127/55 L Pulse Oximetry 97 Oxygen Delivery Room Air 04/11/25 00:00 04/11/25 04:00 04/11/25 05:30 Temperature 97 F L Pulse Rate 95 78 76 Respiratory Rate 18 Blood Pressure 114/76 Pulse Oximetry 95 Oxygen Delivery 04/11/25 08:00 04/11/25 08:00 04/11/25 12:00 Temperature Pulse Rate 82 73 Respiratory Rate Blood Pressure Pulse Oximetry Oxygen Delivery Room Air 04/11/25 14:00 Temperature 97.5 F L Pulse Rate 84 Respiratory Rate 16 Blood Pressure 147/65 H Pulse Oximetry 99 Oxygen Delivery Intake/Output Intake/Output: Intake & Output 04/08/25 04/09/25 04/10/25 04/11/25 23:59 23:59 23:59 23:59 Intake Total 5947.5 4150 4338 1480 Output Total 1150 Balance 5947.5 3000 4338 1480 Meds/Results Medications: Active Medications Generic Name Dose Route Start Last Admin Trade Name Freq PRN Reason Stop Dose Admin Acetaminophen 650 mg 04/08/25 03:50 Acetaminophen 325 Mg Tablet PO Q4H PRN Mild Pain (1-3) or Fever Aspirin 81 mg 04/08/25 09:00 04/11/25 08:58 Aspirin 81 Mg Enteric Tablet PO 81 mg DAILY RIA Administration Calcium Citrate 1 tablet 04/08/25 09:00 04/11/25 08:58 Calcium Citrate 315 Mg/Vitamin D 6.25 Mcg (250 Units) Tab PO 1 tablet DAILY RIA Administration Dextrose 12.5 gm 04/09/25 16:19 Dextrose 50% 25 Gm/50 Ml Syringe IV PUSH PRN PRN Hypoglycemia Protocol Enoxaparin Sodium 40 mg 04/09/25 09:55 04/11/25 08:59 Enoxaparin 40 Mg/0.4 Ml Syringe SUB-Q 40 mg DAILY RIA Administration Glucose 15 gm 04/09/25 16:19 Glucose Oral Gel 15 Gm Of Glucse In 37.5 Gm Tube PO PRN PRN Hypoglycemia Protocol Dextrose 1,000 mls @ 100 mls/hr 04/09/25 16:19 Dextrose 5% 1,000 Ml IVPB PRN PRN Hypoglycemia Protocol Ondansetron HCl 4 mg 04/08/25 03:50 Ondansetron Inj 4 Mg/2 Ml Vial IV PUSH Q4H PRN Nausea Pantoprazole Sodium 40 mg 04/12/25 09:00 Pantoprazole 40 Mg Tablet PO QAM [facility] Radiology Results: ITS Impressions Abdomen/Pelvis CT 04/08/25 08:12 IMPRESSION: 1. Pancolitis. 2. Small volume of ascites. Labs Labs: Laboratory Results - last 24 hr 04/10/25 04/10/25 04/10/25 05:22 17:11 20:27 WBC RBC Hgb Hct MCV MCH MCHC RDW Plt Count MPV Immature Gran % (Auto) Neut % (Auto) Lymph % (Auto) [place] % (Auto) Eos % (Auto) Baso % (Auto) Lymph # (Auto) [place] # (Auto) Eos # (Auto) Baso # (Auto) Abs Immat Gran (auto) Absolute Neuts (auto) Absolute Nucleated RBC Nucleated RBC % Sodium Potassium Chloride Carbon Dioxide Anion Gap BUN Creatinine Estim Creat Clear Calc Estimated GFR Glucose POC Capillary Glucose 96 94 Calcium Magnesium 1.8 04/11/25 04/11/25 04/11/25 00:08 04:48 05:37 WBC 5.3 RBC 3.50 L Hgb 11.3 L Hct 34.6 L MCV 98.9 MCH 32.3 MCHC 32.7 RDW 12.4 Plt Count 331 MPV 9.5 Immature Gran % (Auto) 0.2 Neut % (Auto) 59.0 Lymph % (Auto) 31.5 [place] % (Auto) 4.2 Eos % (Auto) 4.5 H Baso % (Auto) 0.6 Lymph # (Auto) 1.67 [place] # (Auto) 0.2 Eos # (Auto) 0.2 Baso # (Auto) 0.0 Abs Immat Gran (auto) 0.01 Absolute Neuts (auto) 3.1 Absolute Nucleated RBC 0.000 Nucleated RBC % 0.0 Sodium 135 L Potassium 4.0 Chloride 105 Carbon Dioxide 28 Anion Gap 2 L BUN 3 L Creatinine 0.89 Estim Creat Clear Calc 50 Estimated GFR > 60 Glucose 90 POC Capillary Glucose 85 81 Calcium 8.3 L Magnesium 2.2 04/11/25 04/11/25 08:04 11:54 WBC RBC Hgb Hct MCV MCH MCHC RDW Plt Count MPV Immature Gran % (Auto) Neut % (Auto) Lymph % (Auto) [place] % (Auto) Eos % (Auto) Baso % (Auto) Lymph # (Auto) [place] # (Auto) Eos # (Auto) Baso # (Auto) Abs Immat Gran (auto) Absolute Neuts (auto) Absolute Nucleated RBC Nucleated RBC % Sodium Potassium Chloride Carbon Dioxide Anion Gap BUN Creatinine Estim Creat Clear Calc Estimated GFR Glucose POC Capillary Glucose 99 94 Calcium Magnesium
[2025-04-12] VITALS (10 sets, daily range): BP systolic 111–128; BP diastolic 43–68; PULSE 64–87; RESP 17–20; TEMP 36.4–37.1; O2SAT 97–99
--- NOTE | 2025-04-12 | ECHO_ITS ---
Patient Info Name: Romina Brand Age: 64 years : 1960 Gender: Female Ht: 61 in Wt: 149 lbs BSA: 1.73 m2 HR: 64 bpm BP: 116 / 43 mmHg Technical Quality: Good Exam Date: 04/12/2025 9:45 AM Patient Status: I Admit Date: 04/08/2025 Exam Type: CA echo doppler color flow Complete two-dimensional, color flow and Doppler transthoracic echocardiogram is performed. Staff Referring Physician: Venkat Sharma Automatic [employer] Lead Operator: Renzo Sam III Attending Provider: Ruth Rodriguez DO Summary 1. Complete two-dimensional, color flow and Doppler transthoracic echocardiogram is performed. 2. Left ventricular chamber dimension is normal. 3. Left ventricular systolic function is normal, estimated at 55-60. 4. The left ventricular diastolic function is grade I diastolic dysfunction. 5. E/e' 9 is minimally elevated. 6. There is mild aortic valve sclerosis. 7. There is trace aortic valve regurgitation. 8. There is trace mitral valve regurgitation. Left Ventricle E/e' 9 is minimally elevated. Left ventricular chamber dimension is normal. Left ventricular systolic function is normal, estimated at 55-60. The left ventricular diastolic function is grade I diastolic dysfunction. Right Ventricle Right ventricular chamber dimension is normal. Right ventricular systolic function is normal and with normal TAPSE 1.9 cm. Left Atria Left atrial chamber dimension is normal. Right Atria Right atrial chamber dimension is normal. Aortic Valve The aortic valve is trileaflet. There is mild aortic valve sclerosis. There is no aortic valve stenosis. There is trace aortic valve regurgitation. Pulmonic Valve There is no pulmonic regurgitation. Mitral Valve There is no mitral valve stenosis. There is trace mitral valve regurgitation. Tricuspid Valve There is no tricuspid valve regurgitation. Pericardium/Pleural There is no pericardial effusion. Inferior Vena Cava Normal inferior vena cava with >50% collapse upon inspiration consistent with normal right atrial pressure, 5 mmHg. Aorta The aortic root size at the sinus of Valsalva is normal. Left Ventricular Outflow Tract Name Value Normal LVOT 2D LVOT Diameter 2.1 cm LVOT Doppler LVOT Peak Velocity 94 cm/s LVOT Peak Gradient 4 mmHg LVOT Mean Gradient 2 mmHg LVOT VTI 20 cm LVOT VTI/AV VTI Ratio 0.7 LVOT Stroke Volume 69 ml LVOT CO 4.8 l/min LVOT CI 2.8 l/min/m2 Pulmonic Valve Name Value Normal PV Doppler PV Peak Velocity 72 cm/s PV Peak Gradient 2 mmHg PV Mean Gradient 1 mmHg Mitral Valve Name Value Normal MV Doppler MV Peak Gradient 3 mmHg MV Mean Gradient 2 mmHg MV Area (Cont Eq VTI) 3.5 cm2 MV Diastolic Function MV E Peak Velocity 70 cm/s MV A Peak Velocity 83 cm/s MV E/A 0.8 MV Decel Time (PW) 165 ms MV Annular TDI MV E/e' (Septal) 9.8 MV E/e' (Lateral) 8.3 MV E/e' (Average) 9.1 Tricuspid Valve Name Value Normal Estimated PAP/RSVP RA Pressure 5 mmHg <=5 TV Annular TDI TV Lateral Vika s' Velocity 12.4 cm/s >=9.5 Aortic Valve Name Value Normal AV Doppler AV Peak Velocity 129 cm/s AV Peak Gradient 7 mmHg AV Mean Gradient 4 mmHg AV VTI 27 cm AV Area (Cont Eq VTI) 2.5 cm2 >=3.0 AV Area (Cont Eq Morgan) 2.5 cm2 AV DI (Morgan) 0.73 AV Regurgitation 2D LVOT Area 3.5 cm2 Ventricles Name Value Normal LV Dimensions 2D/MM IVS Diastolic Thickness (2D) 0.8 cm 0.6-1.0 LVID Diastole (2D) 4.6 cm 3.8-5.2 LVIW Diastolic Thickness (2D) 0.7 cm 0.6-0.9 LVID Systole (2D) 3.6 cm 2.2-3.5 LVOT Diameter 2.1 cm LV Mass (2D Cubed) 106.79 g 67.00-162.00 LV Mass Index (2D Cubed) 62 g/m2 43-95 Relative Wall Thickness (2D) 0.30 <=0.42 LV Fractional Shortening/Ejection Fraction 2D/MM LV Fractional Shortening (2D) 22 % 27-45 LV EF (2D Teichholz) 45 % LV Diastolic Volume (4C MOD) 82 ml LV EF (4C MOD) 51 % LV Diastolic Volume (2C MOD) 64 ml LV EF (2C MOD) 44 % LV Diastolic Volume (BP MOD) 73 ml 46-106 LV Diastolic Volume Index (BP MOD) 42 ml/m2 29-61 LV Systolic Volume (BP MOD) 39 ml 14-42 LV Systolic Volume Index (BP MOD) 22 ml/m2 8-24 LV EF (BP MOD) 47 % 54-74 LV Diastolic Length (4C) 7.4 cm LV Systolic Length (4C) 6.7 cm LV Stroke Volume (4C MOD) 42 ml Atria Name Value Normal LA Dimensions LA Volume (4C A-L) 49 ml LA Volume (BP A-L) 44 ml RA Dimensions RA Systolic Major Jackson Length (4C) 4.3 cm 2.2-2.8 RA Area (4C) 11.5 cm2 <=18.0 Report Signatures
[2025-04-12 05:42] LABS: Hematocrit 37.0 % (37.0-47.0); Hemoglobin 12.1 g/dL (12.0-15.0); Immature Granulocyte Percent A 0.4 % (0-0.5); Lymphocytes Absolute Auto 2.07 K/mm3 (0.9-3.2); Mean Corpuscular HGB Conc 32.7 g/dl (32-36); Mean Corpuscular Hemoglobin 32.2 pg (26-34); Mean Corpuscular Volume 98.4 fl (80-100); Nucleated Red Blood Cells Absolute Auto 0.000 K/mm3 (0.0-0.012); Nucleated Red Blood Cells Perc 0.0 % (0.0-0.2); Platelet Count Result 363 k/mm3 (150-375); Red Blood Count 3.76 M/mm3 (4.2-5.4); White Blood Count 7.2 K/mm3 (4.5-10.0)
[2025-04-12 06:12] LABS: Anion Gap 2 mmol/L (4-12); Blood Urea Nitrogen 5 mg/dL (7-17); Calcium 8.7 mg/dL (8.4-10.2); Carbon Dioxide 28 mmol/L (22-30); Chloride 104 mmol/L (98-107); Estimated CRCL calculation 49 ml/min; Estimated Glomerular Filt Rate > 60; Glucose 84 mg/dL (65-110); Magnesium 2.0 mg/dL (1.6-2.3); Potassium 4.3 mmol/L (3.4-5.0); Sodium 134 mmol/L (137-145)
[2025-04-12] MEDS: ENOXAPARIN 40 MG/0.4 ML SYRINGE SUB-Q (10:08)
[2025-04-12] MEDS: PANTOPRAZOLE 40 MG TABLET PO (10:09)
[2025-04-12] MEDS: ROSUVASTATIN 20 MG TABLET PO (10:09)
[2025-04-12] MEDS: CALCIUM CITRATE 315 MG/VITAMIN D 6.25 MCG (250 UNITS) TAB 1 TABLET PO (10:09)
[2025-04-12] MEDS: ASPIRIN 81 MG ENTERIC TABLET PO (10:10)
--- NOTE | 2025-04-12 14:09 | ECG_ITS ---
Test Date: 2025-04-12 14:32:26 Measurements Intervals [place] Rate: 80 P: 52 [place]: 151 QRS: 18 QRSD: 85 T: 54 QT: 358 QTc: 414 Interpretive Statements SINUS RHYTHM WITH FREQUENT VENTRICULAR PREMATURE COMPLEXES ABNORMAL RHYTHM ECG Compared to ECG 04/07/2025 23:44:19 Ventricular premature complex(es) now present Electronically Signed On 04-12-2025 15:05:13 CDT by Pascual Ceja M.D.
--- NOTE | 2025-04-12 14:10 | PM.IMPN ---
Progress Note: A&P Assessment and Plan (1) Hypoglycemia: Code(s): E16.2 - Hypoglycemia, unspecified Status: Acute (2) Recurrent severe hypoglycemia: Code(s): E16.2 - Hypoglycemia, unspecified Status: Acute (3) Hyperosmolar hyponatremia: Code(s): E87.0 - Hyperosmolality and hypernatremia; E87.1 - Hypo-osmolality and hyponatremia Status: Acute (4) Pancolitis: Code(s): K52.9 - Noninfective gastroenteritis and colitis, unspecified Status: Acute (5) Acute kidney injury: Code(s): N17.9 - Acute kidney failure, unspecified Status: Acute (6) Acute dehydration: Code(s): E86.0 - Dehydration Status: Acute Plan 64-year-old female with a past medical history of essential hypertension, hyperlipidemia, osteoarthritis and GERD who presented to the ER from home via EMS due to nausea vomiting and diarrhea. Accu-Chek in the field was 40. 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 C diff testing was negative. Patient tells me she took 3 Ex-Lax pills at once because she was constipated. She was already counseled about taking more precaution in using laxatives. 04/12/2025: She is tolerating diet, 1 episode of diarrhea today. Her diarrhea due to laxative overuse is greatly improved. She is off dextrose infusion and her blood sugars are maintaining in the normal range. C diff negative and antibiotics have since been discontinued. Continue Accu-Cheks a.c. HS. Telemetry has been showing more PVC burden than yesterday, about 90%. Obtain EKG, check TSH. Initially, thought to be due to electrolyte imbalance due to diarrhea but her electrolytes have normalized. Echocardiogram resulted with grade 1 diastolic dysfunction and normal systolic function. Mild aortic valve sclerosis, trace aortic valve regurgitation, trace mitral valve regurgitation. Right ventricular systolic function is normal as well. She does not drink caffeine, she does have a questionably large alcohol intake during her bowling league. Counseling was provided. She has had narcolepsy for many decades has been taking armodafinil, unsure if she can stop this. Consulting Cardiology for their assistance. Continue telemetry Acute kidney injury and acute hyponatremia due to diarrhea have resolved. 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 Patient wishes to be full code. Telemetry. Regular diet. Saline lock IV. Lovenox 40 mg subQ q.day. Time Spent With Patient Time with patient: Greater than 35 minutes Subjective Date/time seen: 04/12/25 14:10 Interval history: Patient reports 1 loose bowel movement today. She feels well otherwise, no abdominal pain. She is tolerating diet without nausea or vomiting. Reviewed her telemetry findings and echocardiogram results. Review of Systems Review of Systems: All systems reviewed & are unremarkable except as noted in HPI and below (Subjective) Exam Const: General: comfortable and no acute distress Other: A&O x3 HENMT: Mouth: Yes moist mucous membranes Eyes: Pupils: Equal, round and reactive pupils present Neck: Neck: supple Resp: Effort & Inspection: normal respiratory effort Auscultation: clear to auscultation bilaterally Cardio: Rate: regular rate Rhythm: regular rhythm GI: Inspection: non-distended GI Palp: Yes Soft to palpation Neuro: Motor exam (neuro): 5/5 motor strength present throughout Extrem: General: no edema Objective Data Vital Signs Vital Signs: Vital Signs - 24 hr 04/11/25 16:00 04/11/25 20:00 04/11/25 20:00 Temperature Pulse Rate 85 84 Respiratory Rate Blood Pressure Pulse Oximetry Oxygen Delivery Room Air 04/11/25 20:18 04/11/25 22:00 04/12/25 00:00 Temperature 97.7 F Pulse Rate 82 71 77 Respiratory Rate 20 Blood Pressure 132/66 Pulse Oximetry 100 Oxygen Delivery 04/12/25 04:00 04/12/25 06:00 Temperature 98.8 F Pulse Rate 87 64 Respiratory Rate 17 Blood Pressure 116/43 L Pulse Oximetry 97 Oxygen Delivery Intake/Output Intake/Output: Intake & Output 04/09/25 04/10/25 04/11/25 04/12/25 23:59 23:59 23:59 23:59 Intake Total 4150 4338 1600 478 Output Total 1150 Balance 3000 4338 1600 478 Meds/Results Medications: Active Medications Generic Name Dose Route Start Last Admin Trade Name Freq PRN Reason Stop Dose Admin Acetaminophen 650 mg 04/08/25 03:50 Acetaminophen 325 Mg Tablet PO Q4H PRN Mild Pain (1-3) or Fever Aspirin 81 mg 04/08/25 09:00 04/12/25 10:10 Aspirin 81 Mg Enteric Tablet PO 81 mg DAILY RIA Administration Calcium Citrate 1 tablet 04/08/25 09:00 04/12/25 10:09 Calcium Citrate 315 Mg/Vitamin D 6.25 Mcg (250 Units) Tab PO 1 tablet DAILY RIA Administration Dextrose 12.5 gm 04/09/25 16:19 Dextrose 50% 25 Gm/50 Ml Syringe IV PUSH PRN PRN Hypoglycemia Protocol Enoxaparin Sodium 40 mg 04/09/25 09:55 04/12/25 10:08 Enoxaparin 40 Mg/0.4 Ml Syringe SUB-Q 40 mg DAILY RIA Administration Glucose 15 gm 04/09/25 16:19 Glucose Oral Gel 15 Gm Of Glucse In 37.5 Gm Tube PO PRN PRN Hypoglycemia Protocol Dextrose 1,000 mls @ 100 mls/hr 04/09/25 16:19 Dextrose 5% 1,000 Ml IVPB PRN PRN Hypoglycemia Protocol Lisinopril 20 mg 04/12/25 09:00 04/12/25 10:09 Lisinopril 20 Mg Tablet BY MOUTH 20 mg DAILY RIA Administration Ondansetron HCl 4 mg 04/08/25 03:50 Ondansetron Inj 4 Mg/2 Ml Vial IV PUSH Q4H PRN Nausea Pantoprazole Sodium 40 mg 04/12/25 09:00 04/12/25 10:09 Pantoprazole 40 Mg Tablet PO 40 mg QAM RIA Administration Perflutren Lipid Microsphere 0 ml 04/11/25 16:41 Perflutren Lipid Microspheres 1.5 Ml Vial Diluted To 10 Ml Total Volume IV PUSH 04/14/25 16:41 ONCE PRN adequate visualization Protocol Rosuvastatin Calcium 20 mg 04/12/25 09:00 04/12/25 10:09 Rosuvastatin 20 Mg Tablet PO 20 mg DAILY RIA Administration Radiology Results: ITS Impressions Abdomen/Pelvis CT 04/08/25 08:12 IMPRESSION: 1. Pancolitis. 2. Small volume of ascites. Labs Labs: Laboratory Results - last 24 hr 04/11/25 04/11/25 04/11/25 08:04 11:54 16:53 WBC RBC Hgb Hct MCV MCH MCHC RDW Plt Count MPV Immature Gran % (Auto) Neut % (Auto) Lymph % (Auto) [place] % (Auto) Eos % (Auto) Baso % (Auto) Lymph # (Auto) [place] # (Auto) Eos # (Auto) Baso # (Auto) Abs Immat Gran (auto) Absolute Neuts (auto) Absolute Nucleated RBC Nucleated RBC % Sodium Potassium Chloride Carbon Dioxide Anion Gap BUN Creatinine Estim Creat Clear Calc Estimated GFR Glucose POC Capillary Glucose 99 94 110 H Calcium Magnesium 04/11/25 04/12/25 04/12/25 20:17 05:17 08:20 WBC 7.2 RBC 3.76 L Hgb 12.1 Hct 37.0 MCV 98.4 MCH 32.2 MCHC 32.7 RDW 12.3 Plt Count 363 MPV 10.0 Immature Gran % (Auto) 0.4 Neut % (Auto) 61.3 Lymph % (Auto) 28.9 [place] % (Auto) 4.5 Eos % (Auto) 4.3 Baso % (Auto) 0.6 Lymph # (Auto) 2.07 [place] # (Auto) 0.3 Eos # (Auto) 0.3 Baso # (Auto) 0.0 Abs Immat Gran (auto) 0.03 Absolute Neuts (auto) 4.4 Absolute Nucleated RBC 0.000 Nucleated RBC % 0.0 Sodium 134 L Potassium 4.3 Chloride 104 Carbon Dioxide 28 Anion Gap 2 L BUN 5 L Creatinine 0.89 Estim Creat Clear Calc 49 Estimated GFR > 60 Glucose 84 POC Capillary Glucose 98 82 Calcium 8.7 Magnesium 2.0 04/12/25 11:33 WBC RBC Hgb Hct MCV MCH MCHC RDW Plt Count MPV Immature Gran % (Auto) Neut % (Auto) Lymph % (Auto) [place] % (Auto) Eos % (Auto) Baso % (Auto) Lymph # (Auto) [place] # (Auto) Eos # (Auto) Baso # (Auto) Abs Immat Gran (auto) Absolute Neuts (auto) Absolute Nucleated RBC Nucleated RBC % Sodium Potassium Chloride Carbon Dioxide Anion Gap BUN Creatinine Estim Creat Clear Calc Estimated GFR Glucose POC Capillary Glucose 72 Calcium Magnesium
[2025-04-12 15:32] LABS: Thyroid Stimulating Hormone Reflex 3.780 uIU/mL (0.465-4.68)
[2025-04-13] VITALS (8 sets, daily range): BP systolic 103–125; BP diastolic 60–65; PULSE 73–82; RESP 12–14; TEMP 36.3–37; O2SAT 97–100
[2025-04-13 06:37] LABS: Anion Gap 3 mmol/L (4-12); Blood Urea Nitrogen 7 mg/dL (7-17); Calcium 8.8 mg/dL (8.4-10.2); Carbon Dioxide 29 mmol/L (22-30); Chloride 101 mmol/L (98-107); Estimated CRCL calculation 44 ml/min; Estimated Glomerular Filt Rate 57; Glucose 87 mg/dL (65-110); Magnesium 2.1 mg/dL (1.6-2.3); Potassium 4.5 mmol/L (3.4-5.0); Sodium 133 mmol/L (137-145)
[2025-04-13] MEDS: PANTOPRAZOLE 40 MG TABLET PO (09:42)
[2025-04-13] MEDS: ROSUVASTATIN 20 MG TABLET PO (09:42)
[2025-04-13] MEDS: CALCIUM CITRATE 315 MG/VITAMIN D 6.25 MCG (250 UNITS) TAB 1 TABLET PO (09:42)
[2025-04-13] MEDS: ENOXAPARIN 40 MG/0.4 ML SYRINGE SUB-Q (09:43)
[2025-04-13] MEDS: ASPIRIN 81 MG ENTERIC TABLET PO (09:43)
--- NOTE | 2025-04-13 10:38 | P.CONCA_ITS ---
Assessment and Plan Assessment and plan (1) Ventricular arrhythmia: Code(s): I49.9 - Cardiac arrhythmia, unspecified Status: Acute (2) Ventricular bigeminy: Code(s): I49.8 - Other specified cardiac arrhythmias Status: Acute (3) Hypertension: Code(s): I10 - Essential (primary) hypertension Status: Acute (4) Hyperlipidemia: Code(s): E78.5 - Hyperlipidemia, unspecified Status: Acute (5) Hypoglycemia: Code(s): E16.2 - Hypoglycemia, unspecified Status: Acute (6) Acute renal failure: Code(s): N17.9 - Acute kidney failure, unspecified Status: Acute Plan Assessment/Plan 1. Increased ventricular show ectopic beats in the form of bigeminy and quadrigeminy. Patient is sent had nausea vomiting and diarrhea with dehydration. Echocardiogram reveals preserved systolic function. Potassium and magnesium are normal. EKG reveals no other changes. No suggestion for ischemia. Ventricular ectopic beats likely related to her dehydration and gastrointestinal disease. Benign form of PVCs in the form of ventricular bigeminy and quadrigeminy generally does not require treatment. Continue to monitor potassium and magnesium. 2. Admission with nausea vomiting and diarrhea showed AFib with mild dehydration and pancolitis. Slowly improving. 3. History of hypertension and hyperlipidemia. Patient was on lisinopril 20 mg daily at home. Since LV function is normal will add metoprolol tartrate 12.5 mg b.i.d. to see if that will help with ventricular ectopic beats. This could be changed to metoprolol succinate 25 mg at the time of discharge. Lisinopril could be decreased to 10 mg daily to avoid hypotension. 4. Acute renal failure with dehydration improved at the present time productive. History of Present Illness History of Present Illness Consult date/time: 04/13/25 10:38 Requesting physician: Elaina Metz MD Consult reason: Other (Symptomatic ventricular bigeminy) Reason For Visit: Pancolitis, Recurrent hypoglycemia, VALENTIN Narrative: This is a 64-year-old female who was admitted on 04/07/2025 with complaints of nausea vomiting and diarrhea for nausea vomiting and diarrhea. Patient apparently took a laxative evening before and had several bowel movements but then started having diarrhea. She also had lower abdominal discomfort without at the time of presentation in the emergency room her blood sugar was as low as 40 and was started on D 10 W. no associated fever or chills, shortness of breath or chest pain. Past medical history is significant for history of hypertension, hyperlipidemia gastroesophageal reflux disease. No known previous history of myocardial infarction, congestive heart failure or angina. Admitting blood pressure was 113/53 and heart rate was 88 per minute with 100% oxygen saturation on room air. Patient is afebrile. Admitting laboratory data revealed WBC count 16.7, hemoglobin 13.7 and platelets at [id number]. Sodium was 126, potassium 4.1, BUN was 19 creatinine was 2.02. Admitting EKG revealed normal sinus rhythm without a 86 per minute and no significant ST changes. Admitting CT scan of the abdomen and pelvis revealed pancolitis and small volume ascites. Since admission patient has increasing frequency of PVC in the form of ventricular bigeminy and quadrigeminy. Cardiology consultation was requested. More recent sodium is 133, potassium is 4.5, BUN is 7 creatinine has improved to 0.98 with hydration. Magnesium was 2.1. Echocardiogram was reviewed from 04/12/2025 which showed normal left ventricular size and systolic function estimated at 55-60% with grade 1 diastolic dysfunction and no significant valvular disease.. No pericardial effusion was noted. Patient was examined at the bedside. Patient is awake alert appears comfortable and tolerating diet. Monitor shows frequent PVCs in the form of ventricular bigeminy and quadrigeminy. Review of Systems 2 Constitutional: Comments: Twelve point review of system was completed. Pertinent positive and negative findings per HPI. Constitutional negative for weight loss, fever. Positive for weakness Head and neck negative. Pulmonary negative cough hemoptysis or shortness of breath. Cardiovascular negative for chest pain, shortness of breath. Palpitations present. Gastrointestinal positive for diarrhea nausea and vomiting on admission. Improving. Neurovascular negative for dizziness, syncope or stroke. Genitourinary system negative. Skin and musculoskeletal is intact without. No rash or bruises PMFSH Past Medical History Medical History Circadian rhythm sleep disorder, shift work type [employer] Osteopenia Hyperlipidemia Hypertension GERD (gastroesophageal reflux disease) Dislocation of elbow, left, closed (05/23/19) Depression History of benign breast biopsy Surgical History Surgical History No pertinent past surgical history Family History Family History Father Malignant neoplasm of prostate Mother Diabetes mellitus Heart disease Cerebrovascular accident Other Factor V Leiden Social History Social History Social History: Yvette reports that she has been for 8 years. She has 2 children. She is a lifelong nonsmoker. She drinks 1 alcoholic beverage a day except for on Saturday when she goes bowling she will drink 3 or 4 alcoholic beverages at that time. 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 Code status: Full code Surrogate decision maker: Willie () Smoking status: Never smoker Second hand tobacco smoke exposure: No Additional smoking assessment comments: No smoking Alcohol intake: current Drinks per week: 7 Alcohol use details: Glass of wine per day Substance use: never Substance use type: does not use Do You Feel Safe in your Home?: Yes Lack of Transportation: No Lack of Food: Never True Current Housing: I Have Housing Concerned About Future Housing: No Difficulty Paying Gas/Electric Bills: No Difficulty Paying for Meds: No Currently Unemployed: No Education: High School Diploma/GED Difficulty w/ Childcare or Family Care: No Living arrangements: with family Occupation/Education: occupation Gender identity (if verbalized by the patient): Female Sexual Orientation (if Verbalized by the Patient): Straight or Heterosexual Spiritual care concerns: No Agree to blood products: Yes Meds Home Medications and Allergies Home Medications ?Medication ?Instructions ?Recorded ?Confirmed ?Type aspirin 81 mg tablet,delayed 81 mg PO DAILY 01/23/22 0 04/08/25 History release (Adult Aspirin Regimen) calcium 315 mg (as 1 tablet PO DAILY 01/23/22 0 04/08/25 History citrate)-vitamin D3 6.25 mcg (250 unit) tablet (Citracal + Vitamin D Maximum) rosuvastatin 20 mg tablet 20 mg PO DAILY 01/23/2203/16 History meloxicam 15 mg tablet 15 mg PO DAILY #30 tabs 06/08/0704/08/25 Rx pantoprazole 40 mg tablet,delayed See Rx Instructions .Route 07/13/24 04/08/25 Rx release .COMPLEX #180 tabs lisinopril 20 mg tablet See Rx Instructions .Route 0 08/17/24 04/08/25 Rx .COMPLEX #90 tabs armodafinil 150 mg tablet 150 mg PO QAM #30 tabs 11/2404/08/25 Rx ondansetron HCl 4 mg tablet 4 mg PO Q8H PRN nausea and 04/01/25 04/08/25 Rx vomiting #20 tabs ibuprofen 200 mg tablet 800 mg PO Q6H PRN fever or p ain 04/08/25 04/08/25 History Allergies Allergy/AdvReac Type Severity Reaction Status Date / Time No Known Allergies Allergy Verified 01/19/25 10:45 Vital Signs Vital Signs - 24 hr 04/12/25 12:00 04/12/25 14:00 04/12/25 16:00 Temperature 36.5 C Pulse Rate 81 77 76 Respiratory Rate 18 Blood Pressure 128/54 L Pulse Oximetry 99 Oxygen Delivery Fraction of Inspired Oxygen 04/12/25 20:00 04/12/25 20:00 04/12/25 20:35 Temperature Pulse Rate 78 72 Respiratory Rate Blood Pressure Pulse Oximetry 98 Oxygen Delivery Room Air Room Air Fraction of Inspired Oxygen 21 04/12/25 20:40 04/13/25 00:00 04/13/25 04:00 Temperature 36.4 C Pulse Rate 72 78 73 Respiratory Rate 20 Blood Pressure 111/68 Pulse Oximetry 98 Oxygen Delivery Fraction of Inspired Oxygen 04/13/25 05:06 04/13/25 08:00 Temperature 36.3 C L Pulse Rate 73 76 Respiratory Rate 12 Blood Pressure 103/65 Pulse Oximetry 97 Oxygen Delivery Fraction of Inspired Oxygen Exam 2 Const: Other: Patient was examined at the bedside. Patient is awake alert and appears comfortable. Tolerating diet. Head and neck examination is unremarkable. Sclerae nonicteric. ENT examination is negative. Neck is supple. There is no JVD or carotid bruit. Thyroid is not enlarged. There is no cervical lymphadenopathy. Lungs are clear to auscultation percussion. There is good air entry bilaterally there is no wheezing. Abdomen is soft without any localized tenderness but there is no distention or bruit thrill. Extremities revealed no pedal edema Skin is intact without any rash. Musculoskeletal is negative. Results Labs and Meds 04/12/25 05:17 04/13/25 05:22 Lab results: Comprehensive Metabolic Panel 04/13/25 Range/Units 05:22 Sodium 133 L (137-145) mmol/L Potassium 4.5 (3.4-5.0) mmol/L Chloride 101 (98-107) mmol/L Carbon Dioxide 29 (22-30) mmol/L BUN 7 (7-17) mg/dL Creatinine 0.98 (0.7-1.0) mg/dL Glucose 87 (65-110) mg/dL Calcium 8.8 (8.4-10.2) mg/dL Intake and Output 04/12/25 04/13/25 04/13/25 23:59 07:59 15:59 Intake Total 840 300 240 Balance 840 300 240 Intake: Oral 840 300 240 Other: # Unmeasured Voids 4 2 Number of Bowel Movements Today 1 Patient Weight 04/13/25 23:59 Weight 66 kg Imaging and Cardiology Echo: report reviewed and other (Echocardiogram reveals normal left ventricular size and systolic function with grade 1 diastolic dysfunction. No significant valvular problems or pericardial effusion.) EKG results: report reviewed and other (Reveals normal sinus rhythm without any acute ST changes. More recent EKG reveals ventricular quadrigeminy.)
--- NOTE | 2025-04-13 18:02 | PM.DS ---
DS: Admitting Diagnosis Discharge Date 04/13/2025 Admitting Diagnosis Diarrhea DS: Discharge Diagnosis Discharge Diagnosis (1) Hypertension: Code(s): I10 - Essential (primary) hypertension Status: Acute (2) Ventricular bigeminy: Code(s): I49.8 - Other specified cardiac arrhythmias Status: Acute DS: Summary Hospital Course Hospital Course: 64-year-old female with a past medical history of essential hypertension, hyperlipidemia, osteoarthritis and GERD who presented to the ER from home via EMS due to nausea vomiting and diarrhea. Accu-Chek in the field was 40. 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 C diff testing was negative. Patient tells me she took 3 Ex-Lax pills at once because she was constipated. She was already counseled about taking more precaution in using laxatives. Diarrhea resolved. She is eating, blood sugars are stable. Her loose stools are becoming more formed. She is discharged in stable condition on 04/13/2025 to home. She had PVCs. Echocardiogram attain. Cardio consult completed. She will be discharged metoprolol 25 mg p.o. q.day, lisinopril cut in half to 10 mg p.o. q.day. Follow-up with her PCP and Cardiology in the outpatient setting. Time Spent with Patient Time attestation: Total time spent providing and/or coordinating discharge services: Time spent: Greater than 30 minutes Exam Const: General: comfortable and no acute distress Other: A&O x3 HENMT: Mouth: Yes moist mucous membranes Eyes: Pupils: Equal, round and reactive pupils present Neck: Neck: supple Resp: Effort & Inspection: normal respiratory effort Auscultation: clear to auscultation bilaterally Cardio: Rate: regular rate Rhythm: regular rhythm GI: Inspection: non-distended GI Palp: Yes Soft to palpation Neuro: Motor exam (neuro): 5/5 motor strength present throughout Extrem: General: no edema DS: Data Data Completed and Pending Labs on day of discharge: Labs from last 24 hours 04/13/25 04/13/25 04/13/25 17:06 11:24 07:47 Sodium Potassium Chloride Carbon Dioxide Anion Gap BUN Creatinine Estim Creat Clear Calc Estimated GFR Glucose POC Capillary Glucose 87 87 92 Calcium Magnesium 04/13/25 04/12/25 05:22 20:36 Sodium 133 L Potassium 4.5 Chloride 101 Carbon Dioxide 29 Anion Gap 3 L BUN 7 Creatinine 0.98 Estim Creat Clear Calc 44 Estimated GFR 57 L Glucose 87 POC Capillary Glucose 102 Calcium 8.8 Magnesium 2.1 Preliminary micro results at discharge 04/08/25 05:57 Blood Culture - Preliminary Blood 04/08/25 06:08 Blood Culture - Preliminary Blood Discharge Plan Discharge Attending physician on discharge: Elaina Metz Consulting providers: Ana Quan Discharging Clinician: Elaina Metz Patient Disposition: Home Activity: november shower Diet: as tolerated Patient Instructions: Antibiotic Form, Enoxaparin (By injection) Patient Language: Vietnamese Stand Alone Forms: General Discharge Information Follow-up/Referrals: Ana Quan APN-C [Advanced Practice Nurse, Cardiology] Jody Wills APRN [Primary Care Provider, Family Practice] Discharge Medications: New lisinopril 10 mg Tablet 10 mg BYMOUTH DAILY Qty: 30 0RF metoprolol succinate 25 mg tablet extended release 24 hr 25 mg PO DAILY Qty: 30 0RF Continued aspirin [Adult Aspirin Regimen] 81 mg tablet,delayed release (DR/EC) 81 mg PO DAILY rosuvastatin 20 mg tablet 20 mg PO DAILY calcium citrate-vitamin D3 [Citracal + D Maximum] 315 mg-6.25 mcg (250 unit) tablet 1 tablet PO DAILY pantoprazole 40 mg tablet,delayed release (DR/EC) See Rx Instructions .ROUTE .COMPLEX Qty: 180 2RF Dose Instruction: TAKE 1 TABLET BY MOUTH TWICE A DAY Rx Instructions: TAKE 1 TABLET BY MOUTH TWICE A DAY armodafinil 150 mg tablet 150 mg PO QAM Qty: 30 4RF ondansetron HCl 4 mg tablet 4 mg PO Q8H PRN (Reason: nausea and vomiting) Qty: 20 0RF Discontinued ibuprofen 200 mg tablet 800 mg PO Q6H PRN (Reason: fever or pain) meloxicam 15 mg tablet 15 mg PO DAILY Qty: 30 7RF lisinopril 20 mg tablet See Rx Instructions .ROUTE .COMPLEX Qty: 90 2RF Dose Instruction: 20 MG ORALLY DAILY Rx Instructions: 20 MG ORALLY DAILY Date of admission: 04/08/25 03:50 Primary Care Provider: Jody Wills Admitting Provider: Ruth Rodriguez Attending physician on admission: Ruth Rodriguez Condition: Stable Hospitalist MIPS Heart Failure (Exclusion) Patient has history of Heart Transplant or Left Ventricular Assistive Device?: No IF YES, STOP HERE Heart Failure (Qualifier) Patient has current or prior documentation of LVEF less than or equal to 40%, or mod/servere depressed LVSF?: No IF NO, STOP HERE
== END 2025-04-13 18:23 | disposition home or self-care (01) | DRG 394 ==
LOC: ANHED 04-08 03:07 → ANHIMU 04-08 04:21 → ANH3MED 04-09 23:57
PROVIDERS: General Practice; Internal Medicine; Admitting Provider Internal Medicine; Emergency Provider Student in an Organized Health Care Education/Training Program; PCP Nurse Practitioner Family; Visit Provider General Practice
DX: K52.1 Toxic gastroenteritis and colitis (principal); E87.1 Hypo-osmolality and hyponatremia; N17.9 Acute kidney failure, unspecified; E87.21 Acute metabolic acidosis; E16.0 Drug-induced hypoglycemia without coma; T47.4X5A Adverse effect of other laxatives, initial encounter; T39.395A Adverse effect of other nonsteroidal anti-inflammatory drugs [NSAID], initial encounter; R00.8 Other abnormalities of heart beat; E86.0 Dehydration; E78.5 Hyperlipidemia, unspecified; K21.9 Gastro-esophageal reflux disease without esophagitis; I10 Essential (primary) hypertension; G47.419 Narcolepsy without cataplexy
CPT/HCPCS: 36415; 74176; 80048; 80053; 81001; 82948; 83690; 83735; 84443; 85025; 85027; 85055; 87040; 87045; 87046; 87427; 87493; 93005; 93306; 96361; 96374; 97161; 97165; 99291; A9270; J0696; J0744; J1650; J1836; J2405; J3475; J7030; J7120; J7121

== ENCOUNTER 2025-05-12 10:47 | Outpatient (CLI) | payer BC, SELFPAY ==
--- NOTE | ~2025-05-12 | MM_ITS ---
EXAMINATION: MM screening [facility] BI w dulce HISTORY: Screening TECHNIQUE: Craniocaudal and mediolateral oblique 3-D tomosynthesis images were obtained and synthetic 2-D images were generated. CAD analysis was submitted and interpreted. COMPARISON: Comparison to multiple prior studies sequentially, with oldest reviewed study dated 09/17/2016. BREAST PARENCHYMAL COMPOSITION: Not dense: There are scattered areas of fibroglandular density. FINDINGS: There is no evidence of suspicious mass, calcification, or architectural distortion to suggest malignancy in either breast. There has been no suspicious interval change. IMPRESSION: 1. No mammographic evidence of malignancy. 2. Recommend routine screening mammography in one year. BI-RADS Category 1: Negative Reviewed, dictated and finalized at location B.
== END 2025-05-12 10:48 | disposition home or self-care (01) ==
LOC: MICIMG 10:48
PROVIDERS: PCP Nurse Practitioner Family; Visit Provider Nurse Practitioner Family
DX: Z12.31 Encounter for screening mammogram for malignant neoplasm of breast (principal)
CPT/HCPCS: 77063; 77067